=== PATIENT | female | born 1990 | race Caucasian/White ===

== ENCOUNTER → 2017-01-15 | Day surgery (SDC) | payer BC ==
[~2017-01-15] VITALS: Ht 162.6 cm; Wt 50.0 kg
[~2017-01-15] MED LIST: DESO1TAB PO
[2017-01-15 12:45] VITALS: BP 118/66; PULSE 66; TEMP 36.6; O2SAT 99; Ht 162.6 cm; Wt 50.0 kg
--- NOTE | 2017-01-15 15:13 | TILT TABLE TEST RESULTS ---
INDICATIONS FOR TILT TESTING: Recurrent syncope. HISTORY OF PRESENT ILLNESS: This is a 26-year-old woman who has been having recurrent episodes of syncope. They occur while she is standing up and while she is sitting down. She is currently undergoing evaluation including an event monitor which she is currently wearing but has had no episodes of syncope while wearing it. After obtaining informed consent for the procedure, she was placed on the tilt test where she remained supine for 15 minutes. After 15 minutes of equilibration the head of the bed was tilted upright to a 70 degree upright tilt where she remained for 40 minutes. At the end of 40 minutes, the bed was placed supine. During the tilt test, continuous electrocardiographic monitoring and pulse oximetry were performed and noninvasive blood pressure monitoring was performed. During the test, she had no symptoms. FINDINGS: Her blood pressure after the 15 minute equilibration period prior to upright tilt was 121/77, heart rate was 67, and oxygen saturation was 100%. Immediately on attaining an upright tilt, her blood pressure was 143/84, heart rate 84, and oxygenation unchanged at 100%. During the minutes of upright tilt, her heart rate fluctuated significantly, sometimes between 60 and 115 beats per minute, and in general gradually martha during the test. By the end of the test at 40 minutes her heart rate was averaging around 102. Her blood pressure also fluctuated somewhat with no clear pattern. Her minimum blood pressure occurred after 1 minute was 119/88, the maximum blood pressure occurred at 5 minutes and was 146/85. After 40 minutes, her blood pressure was 129/92. Oxygen saturation remained between 97 and 100% throughout. Immediately on being placed supine at the end of the test, her blood pressure was 132/78 (unchanged) and her heart rate was 102 (also unchanged). She was observed briefly and discharged. IMPRESSION: No evidence of vasovagal hypotension, and she was asymptomatic. She did, however, have a fluctuating heart rate, but this was asymptomatic. Her heart rate did gradually increased throughout the test suggestive of orthostasis; however, when placed supine heart rate did not drop. This would be inconsistent with orthostasis. The test therefore was a little bit unusual, but not clearly abnormal for either orthostasis or for vasovagal episode.
== END | disposition home or self-care (01) ==
LOC: C.CATH 12:17
PROVIDERS: ATTEND Internal Medicine Cardiovascular Disease
DX: R55 Syncope and collapse (principal)

== ENCOUNTER → 2017-03-08 | Outpatient (CLI) | payer BC ==
[2017-03-11 23:56] LABS: CHLAMYDIA TRACH RNA*** NOT DETECTED (NOT DETECTED); GC (NEIS GONORRHOEAE)RNA** NOT DETECTED (NOT DETECTED)
== END | disposition home or self-care (01) ==
LOC: C.LABSPEC 17:42
PROVIDERS: ATTEND Obstetrics & Gynecology
DX: Z11.3 Encounter for screening for infections with a predominantly sexual mode of transmission (principal)

== ENCOUNTER → 2017-03-08 | Outpatient (CLI) | payer BC | END | disposition home or self-care (01) | LOC: C.PAPS 10:23 | PROVIDERS: ATTEND Obstetrics & Gynecology | DX: Z01.419 Encounter for gynecological examination (general) (routine) without abnormal findings (principal) ==

== ENCOUNTER 2017-03-21 07:18 | Day surgery (SDC) | payer BC ==
[~2017-03-21] VITALS: Ht 162.6 cm; Wt 52.0 kg
[2017-03-21] VITALS (8 sets, daily range): BP systolic 106–139; BP diastolic 61–80; PULSE 61–80; TEMP 36.7–37.4; O2SAT 98–100; Ht 162.6 cm; Wt 52.0 kg
[~2017-03-21 07:18] MED LIST changes: +CEFAZOLIN 1000MG/55 ML D5W 55 ML IV SCH; +LACTATED RINGER'S 1000ML IV SCH; +PATIENT'S ALLERGY INFO NEEDS ENTERED SCH; +PATIENT'S HEIGHT AND/OR WEIGHT NEEDED SCH
[2017-03-21] MEDS ORDERED: LIDOCAINE HCL 1% 20 ML VIAL ONE (09:45)
[2017-03-21] MEDS ORDERED: BACITRACIN OINT 0.9 GM PKT ONE (09:45)
--- NOTE | 2017-03-21 10:05 | History & Physical Bridge Note ---
H&P Re-Evaluation Bridge Note: I have examined the patient, reviewed the History & Physical and in the interval since the performance of the History & Physical I have noted the following changes of clinical significance: No changes noted. I reviewed the indications, procedure, risks and alternatives with her and she understands and agrees to proceed. Consent obtained.
--- NOTE | 2017-03-21 10:06 | Procedure Note ---
Pre-Mod Sedation Assessment General Date of Moderate Sedation: March 21, 2017. Vital Signs: Vital Signs Past 12 Hours Date Time Temp Pulse Resp B/P Pulse Ox O2 Delivery O2 Flow Rate FiO2 03/21/17 10:01 36.8 80 16 139/80 99 Room Air 03/21/17 09:57 36.8 80 16 139/80 99 Room Air Review Cardiovascular: regular rate, rhythm Abdomen: normal bowel sounds Lungs: lungs clear Pre-Sedation Airway Assessment Smoking Status: Never Smoker Procedure Planning Contraindications-for Mod Sed: None Yes Notes The planned sedation has been discussed with the patient and consent obtained. I have identified the patient, determined the appropriateness of sedation and have assessed the patient immediately prior to the procedure. All medicine(s) and interventions are by my order.
[2017-03-21] MEDS ORDERED: MIDAZOLAM HCL 1 MG/ML 2ML VIAL ONE (10:14)
[2017-03-21] MEDS ORDERED: FENTANYL CITRATE INJ 50 MCG/1 ML 2 ML VIAL ONE (10:14)
--- NOTE | 2017-03-21 10:51 | Procedure Note ---
Post-Mod Sedation Assessment General Date of Moderate Sedation March 21, 2017. Vital Signs: Vital Signs Past 12 Hours Date Time Temp Pulse Resp B/P Pulse Ox O2 Delivery O2 Flow Rate FiO2 03/21/17 10:01 36.8 80 16 139/80 99 Room Air 03/21/17 09:57 36.8 80 16 139/80 99 Room Air Review - Discharge Criteria Vital Signs Stable: Yes Alert/Oriented/Conversant: Yes Returned to Baseline Mental St: Yes Nausea Absent/Minimal: Yes Pain/Discomfort/Absent/Minimal: Yes Normal/Baseline Respirations: Yes Active Bleeding?: No
--- NOTE | 2017-03-21 10:53 | Cardiology Procedure Brief Nt ---
Preliminary Cardiology Note Procedure Date March 21, 2017. Pre-Procedure Diagnosis syncope Post-Procedure Diagnosis same Procedure(s) Performed Loop recorder implantation Machine Heel Seat Fitter Dr. Martin Filling Layer Up(s) none Estimated Blood Loss 2 cc Preliminary Findings Good recorder placement Recommendations Monitor briefly and discharge Specimens None Anesthesia local with sedation Complication(s) None Disposition MTU
[2017-03-21] MEDS ORDERED: OXYCODONE/ACETAMINOPHEN 5-325 TAB PO PRN (11:00)
[2017-03-21] MEDS ORDERED: ACETAMINOPHEN 325 MG TAB PO PRN (11:00)
--- NOTE | 2017-03-21 11:39 | Discharge Instructions ---
Discharge Instructions Date of Service March 21, 2017. Admission Reason for Admission: Syncope Discharge Discharge Diagnosis / Problem: Loop recorder implantation Discharge Goals Goal(s): Diagnostic testing Activity Recommendations Activity Limitations: resume your previous activity . Instructions / Follow-Up Instructions / Follow-Up ACTIVITY RECOMMENDATIONS: * Do not raise affected arm over head for 2 weeks. SPECIAL CARE INSTRUCTIONS: * If bleeding occurs, apply direct pressure to area for 5 minutes. * Call your doctor if you have severe pain, fever, drainage or bleeding at site. * Keep dressing on and dry. * Keep any scheduled doctor's appointment. * Implant Card - hand held device with website information given. FOLLOW UP VISIT: Dr. Martin 03/22/2017, 10:30 AM Current Hospital Diet Patient's current hospital diet: Regular Diet Discharge Diet Recommended Diet: Regular Diet Pending Studies Studies pending at discharge: no Medical Emergencies . Who to Call and When: Medical Emergencies: If at any time you feel your situation is an emergency, please call 911 immediately. . Non-Emergent Contact Non-Emergency issues call your: Primary Care Provider . . "Provider Documentation" section prepared by Pete Martin. . VTE Core Measure Inpt VTE Proph given/why not?: Treatment not indicated
--- NOTE | 2017-04-15 21:49 | OPERATIVE REPORT ---
DATE OF OPERATION: 03/21/2017 PREOPERATIVE DIAGNOSIS: Syncope. POSTOPERATIVE DIAGNOSIS: Same. PROCEDURE: Loop recorder implantation. SURGEON: Pete Martin MD ANESTHESIA: Local with sedation. HISTORY: This is a 26-year-old woman who has a history of presyncope and syncope, attempts have been made to record the episodes and she had a tilt test. A clear etiology for syncope has not been identified. She is therefore brought to the laboratory for loop recorder implantation. DESCRIPTION OF PROCEDURE: After obtaining informed consent for the procedure, she was brought to the laboratory on the morning of 03/21/2017 being n.p.o. after midnight. She was identified in the laboratory, prepped and draped in standard sterile manner for a left-sided loop recorder implantation. The area 1 cm lateral to the left sternal border at around the fourth intercostal space was anesthetized with 1% lidocaine local anesthetic. Once adequate anesthesia was obtained, a 5 mm incision was made with a scalpel, and using the loop recorder insertion tool, a [employer] LINQ loop recorder was implanted subcutaneously at an approximately 45 degree angle inferiorly and leftwardly directed. The incision was then closed with a subcutaneous closure of 4-0 Vicryl followed by running subcuticular skin closure of 4-0 Vicryl. Steri-Strips were applied. Bacitracin ointment was applied to the incision and a pressure dressing applied. The patient tolerated the procedure well, there were no complications and estimated blood loss was 2 mL. The patient was transferred to the ambulatory unit for monitoring and subsequent discharge. The loop recorder is a [employer] Reveal LINQ, model LNQ11, serial number #[id number]. The recorder was reprogrammed in the laboratory to final settings. SHIRA
== END 2017-03-21 13:10 | disposition home or self-care (01) ==
LOC: C.ACU 07:18
PROVIDERS: ATTEND Internal Medicine Cardiovascular Disease
DX: R55 Syncope and collapse (principal); R53.83 Other fatigue; R01.1 Cardiac murmur, unspecified; R00.2 Palpitations; Z81.8 Family history of other mental and behavioral disorders; Z83.2 Family history of diseases of the blood and blood-forming organs and certain disorders involving the immune mechanism; Z83.3 Family history of diabetes mellitus; Z82.49 Family history of ischemic heart disease and other diseases of the circulatory system

== ENCOUNTER 2020-03-07 12:06 | Inpatient (IN) ==
[2020-03-07] MEDS ORDERED: OXYTOCIN 30 UNITS/500 ML BAG IV PRN ×2 (12:40→20:20)
--- NOTE | 2020-03-07 12:45 | History & Physical Report ---
Date of Service March 07, 2020 Assessment & Plan (1) Supervision of normal first : - heart rate tracing is category 2 with variability and good accelerations -Cervical change documented on physical examination and there was spontaneous rupture of membranes with clear fluid -The patient desires an epidural, anesthesia will be notified -All questions answered of the patient -Anticipate vaginal delivery History of Present Illness Chief Complaint: labor check Primary Care Provider: NO PCP The patient is a 29-year-old 1 para 0 with an EDC of 02 March, by first trimester ultrasound, who was admitted at 40+ weeks gestational age in active labor. The patient has been having prodromal contractions for the last 48 hours. She had 2 labor evaluations in the previous 36 hours and was discharged home with no cervical change. Patient states that the contractions have continued to increase in intensity. She denies leaking of fluid or vaginal bleeding. The patient has had a benign course. The patient was evaluated by cardiology for some syncopal episodes. She had a pvc monitor which showed SVT. Patient has been doing well during out the . Laboratory values for the show blood type of O+, antibody negative, rubella immune, hepatitis B negative, she had negative cell free DNA screening, negative cystic fibrosis and SMA screen, she declined MSAFP, she had a normal 1 hour Glucola x2, and a negative third trimester beta strep culture. Allergies Allergy/AdvReac Type Severity Reaction Status Date / Time No Known Allergies Allergy Verified 03/03/20 11:14 Home Medications Home Medications Medication Instructions Recorded Confirmed Type prenat.vits,braydon,[id number] 1 tab PO DAILY 07/15/19 03/05/20 History Patient History Medical History (Updated 03/07/20 @ 12:40 by Nathen Prado Jr, MD, FACOG) Fainting No pertinent past medical history Uterine contractions at greater than 20 weeks of gestation Surgical History S/P wisdom tooth extraction Status post placement of implantable loop recorder Social History Preferred Language: Bulgarian Communication Ability: Effective Beliefs That Will Affect Care: None marital status: marital status details: Sly Yaneth (29) [phone] Current Living Situation: Spouse Current Living Situation Comment: Sly current occupational status: employed 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[employer] Other Information That Helps Us Care for You: No Feels Safe at Home: Yes Safety Concerns: Feels Safe At This Time Smoking Status: Never smoker Hx Alcohol Use: No Hx Substance Use: No Physical Exam Constitutional: WD/WN, vitals as above Respiratory: Auscultation: lungs clear to auscultation bilaterally Cardiovascular: RRR, no murmur, no edema Extremities: no calf tenderness Gastrointestinal (Abdomen): Gravid, vtx, (+) FHT's efw 7 1/2 lbs Genitourinary: Cervix: 5/90/-1, SROM with exam Results & Data Vital Signs (Past 12 Hours) Vital Signs Temp Pulse Resp BP 03/07/20 12:23 98.2 F 20 03/07/20 12:18 102 H 116/76 Coding Level of Care Code None Diagnoses Supervision of normal first Z34.00
[2020-03-07] MEDS ORDERED: ePHEDrine sulfate 50 MG/ML AMP ONE (12:58)
[2020-03-07] MEDS ORDERED: fentaNYL citrate 100 MCG/2 ML VIAL ONE (12:58)
[2020-03-07] MEDS ORDERED: BUPIVACAINE 0.25% 30 ML VIAL ONE (12:58)
[2020-03-07] MEDS ORDERED: fentaNYL 2MCG/ML ROPIV 1.25MG/ML 100 ML BAG EPI ONE (12:59)
[2020-03-07] MEDS: LACTATED RINGER'S 1,000 ML IV PRN ×3 (13:00→17:42)
[2020-03-07 13:10] LABS: Hematocrit (blood only) 36.2 % (37-47); Hemoglobin 12.5 g/dL (12.0-16.0); Mean Corpuscular Hemoglobin 30.7 pg (25-34); Mean Corpuscular Volume 88.9 fL (80-100); Mean Platelet Volume 8.6 fL (7.4-10.4); Platelet Count 277 K/uL (130-400); RDW Coefficient of Variation 13.3 % (11.5-14.5); RDW Standard Deviation 43.4 fL (36.4-46.3); Red Blood Count 4.07 M/uL (4.2-5.4); White Blood Count 18.86 K/uL (4.8-10.8)
[2020-03-07 13:33] LABS: Mean Corpuscular Hgb Conc 34.5 g/dL (32-36)
[2020-03-07] MEDS ORDERED: ePHEDrine sulfate 50 MG/ML AMP IV PRN (14:00)
[2020-03-07] MEDS ORDERED: NALOXONE HCL 1 MG in SODIUM CHLORIDE 0.9% 1000ML 1,000 ML IV PRN (14:00)
[2020-03-07] MEDS ORDERED: ONDANSETRON INJ 2 MG/ML 2 ML VIAL IV PRN (14:00)
[2020-03-07] MEDS ORDERED: fentaNYL 2MCG/ML ROPIV 1.25MG/ML 100 ML BAG EPI PRN (14:00)
[2020-03-07] MEDS ORDERED: NALBUPHINE HCL INJ 10 MG/ML AMP IV PRN (14:00)
[2020-03-07] MEDS ORDERED: DiphenhydrAMINE HCL 50 MG/ML VIAL IV PRN (14:00)
[2020-03-07] MEDS ORDERED: NALOXONE HCL 0.4 MG/1 ML VIAL/CARP IV PRN (14:00)
--- NOTE | 2020-03-07 14:00 | Anesthesiology Consultation ---
Date of Service March 07, 2020 Assessment & Plan (1) Encounter for pre-operative examination: Chart Review Chart Review: Patient NOT seen in Pre Admission Testing and Acceptable Risk for Labor Epidural Consults Requested none ASA ASA2 Proposed Anesthesia Anesthesia Type: Labor Epidural Risk / Benefits Reviewed With: PT / POA / Parent / Guardian, Accepts Plan and Informed Consent Obtained History Height/Weight Height: 5 ft 4 in Weight: 64.864 kg Allergies Allergy/AdvReac Type Severity Reaction Status Date / Time No Known Allergies Allergy Verified 03/03/20 11:14 Medications Home Medications Medication Instructions Recorded Confirmed Last Taken prenat.vits,braydon,vky-rvno-rqssz 1 tab PO DAILY 07/15/19 03/07/20 03/05/20 08:00 Active Medications Generic Name Dose Route Start Last Admin Trade Name Freq PRN Reason Stop Dose Admin Lactated Ringer's 1,000 mls @ 125 mls/hr 03/07/20 12:40 03/07/20 13:44 Lr IV 03/09/20 12:39 999 mls/hr .Q8H PRN Administration L&D Protocol Protocol NPO Date Last Intake of Fluids: 03/07/20 Time Last Intake of Fluids: 11:00 Date Last Intake of Solids: 03/07/20 Time Last Intake of Solids: 08:00 Past Medical History Medical History Fainting No pertinent past medical history Uterine contractions at greater than 20 weeks of gestation Exercise / Class Metabolic Activity II 4-5 Yardwork/Stairs/Walk up hill Past Family History Family History Mother Anemia Grandmother (Maternal) Thyroid disease Past Surgical History Surgical History S/P wisdom tooth extraction Status post placement of implantable loop recorder Past Anesthesia History No Hx of Anesthesia Complications and No Family Hx of Anesthesia Complications History of PONV No Hx of PONV and No Hx of Motion Sickness Social History Smoking Status: Never smoker Hx Alcohol Use: No Hx Substance Use: No Physical Exam Vital Signs Last Vital Signs Temp 36.8 C 03/07/20 12:23 Pulse 84 03/07/20 13:57 Resp 20 03/07/20 12:23 BP 127/69 04/27/20 13:57 Pulse Ox 91 03/07/20 13:56 ENMT Mouth: no dentition abnormality Thyromental Distance: > or= 3.5 Finger Breadths Mallampati Class: II Neck normal visual inspection Respiratory normal respiratory effort Auscultation: lungs clear to auscultation bilaterally Cardiovascular Rate/Rhythm: regular rate and regular rhythm Psychiatric Orientation: alert Testing Laboratory Results 03/07/20 13:01
--- NOTE | 2020-03-07 18:11 | Labor Progress Brief Note ---
Date of Service March 07, 2020 Subjective pain with ctx's Assessment & Plan (1) Supervision of normal first : - tracing Cat II, decels with ctx's but accelerations and variability - head low (+)1-(+)2 with ctx - anterior lip reduced - continue 2nd stage Physical Exam Genitourinary: Cervix: thick anterior lip reduced, pushing effectively Results & Data Vital Signs (Past 12 Hours) Vital Signs Temp Pulse Resp BP Pulse Ox 03/07/20 18:04 155 H 180/95 H 03/07/20 18:03 123 H 98 03/07/20 18:02 120 H 90 03/07/20 17:58 131 H 98 03/07/20 17:54 129 H 139/91 03/07/20 17:53 121 H 99 03/07/20 17:49 109 H 150/88 H 03/07/20 17:48 109 H 98 03/07/20 17:43 111 H 153/98 H 99 03/07/20 17:39 96 H 144/86 H 03/07/20 17:38 100 H 99 03/07/20 17:34 96 H 154/96 H 03/07/20 17:33 101 H 100 03/07/20 17:31 20 03/07/20 17:28 90 143/82 H 98 03/07/20 17:24 92 H 130/81 03/07/20 17:23 89 99 03/07/20 17:19 88 138/84 03/07/20 17:18 100 H 97 03/07/20 17:14 102 H 139/80 03/07/20 17:13 95 H 99 03/07/20 17:10 88 151/83 H 03/07/20 17:08 96 H 99 03/07/20 17:03 106 H 141/83 H 100 03/07/20 17:01 98.6 F 20 03/07/20 17:00 85 140/82 03/07/20 16:58 84 100 03/07/20 16:54 90 137/80 03/07/20 16:53 88 99 03/07/20 16:50 79 141/84 H 03/07/20 16:48 83 99 03/07/20 16:45 82 133/79 03/07/20 16:43 82 99 03/07/20 16:39 88 133/87 03/07/20 16:38 88 99 03/07/20 16:33 93 H 114/56 L 99 03/07/20 16:31 20 03/07/20 16:29 90 113/56 L 03/07/20 16:28 93 H 99 03/07/20 16:25 84 124/59 L 03/07/20 16:23 86 99 03/07/20 16:19 75 113/62 03/07/20 16:18 77 98 03/07/20 16:14 87 121/68 03/07/20 16:13 86 98 03/07/20 16:09 77 112/58 L 03/07/20 16:08 80 99 03/07/20 16:04 77 129/66 03/07/20 16:03 76 98 03/07/20 16:01 20 03/07/20 15:59 78 122/71 03/07/20 15:58 80 97 03/07/20 15:54 92 H 130/81 03/07/20 15:53 76 98 03/07/20 15:49 90 121/71 03/07/20 15:48 86 97 03/07/20 15:44 81 121/76 03/07/20 15:43 73 97 03/07/20 15:40 80 126/73 03/07/20 15:38 112 H 97 03/07/20 15:34 86 118/80 03/07/20 15:33 84 98 03/07/20 15:31 20 03/07/20 15:28 77 126/77 97 03/07/20 15:24 93 H 121/78 03/07/20 15:23 80 99 03/07/20 15:19 80 120/71 03/07/20 15:18 76 98 03/07/20 15:14 81 121/76 03/07/20 15:13 80 99 03/07/20 15:08 78 122/80 98 03/07/20 15:05 79 120/76 03/07/20 15:03 76 98 03/07/20 15:01 98.6 F 20 03/07/20 14:58 92 H 116/72 97 03/07/20 14:54 85 118/76 03/07/20 14:53 82 98 03/07/20 14:49 114 H 119/79 03/07/20 14:48 112 H 98 03/07/20 14:44 86 127/76 03/07/20 14:43 75 98 03/07/20 14:39 77 134/78 03/07/20 14:38 92 H 100 03/07/20 14:34 75 128/78 03/07/20 14:33 72 99 03/07/20 14:31 20 03/07/20 14:30 72 123/72 03/07/20 14:28 135 H 98 03/07/20 14:24 101 H 125/77 03/07/20 14:23 84 99 03/07/20 14:18 108 H 120/69 99 03/07/20 14:14 85 122/59 L 03/07/20 14:13 88 99 03/07/20 14:10 78 115/81 03/07/20 14:08 78 99 03/07/20 14:04 83 128/69 03/07/20 14:03 79 97 03/07/20 14:01 20 03/07/20 13:58 85 98 03/07/20 13:57 84 127/69 03/07/20 13:56 95 H 91 03/07/20 13:55 77 129/64 03/07/20 13:53 99 H 141/75 H 99 03/07/20 13:49 108 H 89 L 03/07/20 13:48 82 98 03/07/20 13:43 105 H 97 03/07/20 13:42 86 146/67 H 03/07/20 13:41 107 H 93 03/07/20 13:38 76 99 03/07/20 13:33 86 97 03/07/20 13:28 75 99 03/07/20 13:23 101 H 99 03/07/20 13:18 78 99 03/07/20 13:13 77 98 03/07/20 12:23 98.2 F 20 03/07/20 12:18 102 H 116/76 Coding Level of Care Code None Diagnoses Supervision of normal first Z34.00
[2020-03-07] MEDS ORDERED: Nursing to Pharmacy Communication ONE (19:13)
--- NOTE | 2020-03-07 19:27 | Labor Progress Brief Note ---
Date of Service March 07, 2020 Assessment & Plan (1) Supervision of normal first : - tracing CAt II - continue 2nd stage Physical Exam Genitourinary: Cervix: complete/ caput at introitus with push Results & Data Vital Signs (Past 12 Hours) Vital Signs Temp Pulse Resp BP Pulse Ox 03/07/20 19:23 135 H 98 03/07/20 19:19 115 H 148/78 H 03/07/20 19:18 138 H 97 03/07/20 19:15 22 03/07/20 19:13 126 H 133/83 97 03/07/20 19:10 137 H 134/78 03/07/20 19:09 115 H 89 L 03/07/20 19:08 113 H 96 03/07/20 19:04 141 H 134/84 03/07/20 19:03 144 H 99 03/07/20 19:00 98.8 F 22 03/07/20 18:58 136 H 127/74 97 03/07/20 18:56 143 H 90 03/07/20 18:54 127 H 133/77 03/07/20 18:53 141 H 97 03/07/20 18:51 123 H 91 03/07/20 18:48 106 H 95 03/07/20 18:43 155 H 98 03/07/20 18:39 110 H 132/64 03/07/20 18:38 110 H 96 03/07/20 18:34 109 H 138/80 03/07/20 18:33 109 H 97 03/07/20 18:31 20 03/07/20 18:29 126 H 122/67 03/07/20 18:28 131 H 96 03/07/20 18:26 136 H 94 03/07/20 18:25 144 H 138/77 03/07/20 18:23 154 H 97 03/07/20 18:21 130 H 90 03/07/20 18:19 155 H 124/84 03/07/20 18:18 132 H 97 03/07/20 18:15 131 H 91 03/07/20 18:13 99.9 F H 156 H 20 97 03/07/20 18:09 127 H 125/81 03/07/20 18:08 134 H 97 03/07/20 18:04 155 H 180/95 H 03/07/20 18:03 123 H 98 03/07/20 18:02 120 H 90 03/07/20 17:58 131 H 98 03/07/20 17:54 129 H 139/91 03/07/20 17:53 121 H 99 03/07/20 17:49 109 H 150/88 H 03/07/20 17:48 109 H 98 03/07/20 17:43 111 H 153/98 H 99 03/07/20 17:39 96 H 144/86 H 03/07/20 17:38 100 H 99 03/07/20 17:34 96 H 154/96 H 03/07/20 17:33 101 H 100 03/07/20 17:31 20 03/07/20 17:28 90 143/82 H 98 03/07/20 17:24 92 H 130/81 03/07/20 17:23 89 99 03/07/20 17:19 88 138/84 03/07/20 17:18 100 H 97 03/07/20 17:14 102 H 139/80 03/07/20 17:13 95 H 99 03/07/20 17:10 88 151/83 H 03/07/20 17:08 96 H 99 03/07/20 17:03 106 H 141/83 H 100 03/07/20 17:01 98.6 F 20 03/07/20 17:00 85 140/82 03/07/20 16:58 84 100 03/07/20 16:54 90 137/80 03/07/20 16:53 88 99 03/07/20 16:50 79 141/84 H 03/07/20 16:48 83 99 03/07/20 16:45 82 133/79 03/07/20 16:43 82 99 03/07/20 16:39 88 133/87 03/07/20 16:38 88 99 03/07/20 16:33 93 H 114/56 L 99 03/07/20 16:31 20 03/07/20 16:29 90 113/56 L 03/07/20 16:28 93 H 99 03/07/20 16:25 84 124/59 L 03/07/20 16:23 86 99 03/07/20 16:19 75 113/62 03/07/20 16:18 77 98 03/07/20 16:14 87 121/68 03/07/20 16:13 86 98 03/07/20 16:09 77 112/58 L 03/07/20 16:08 80 99 03/07/20 16:04 77 129/66 03/07/20 16:03 76 98 03/07/20 16:01 20 03/07/20 15:59 78 122/71 03/07/20 15:58 80 97 03/07/20 15:54 92 H 130/81 03/07/20 15:53 76 98 03/07/20 15:49 90 121/71 03/07/20 15:48 86 97 03/07/20 15:44 81 121/76 03/07/20 15:43 73 97 03/07/20 15:40 80 126/73 03/07/20 15:38 112 H 97 03/07/20 15:34 86 118/80 03/07/20 15:33 84 98 03/07/20 15:31 20 03/07/20 15:28 77 126/77 97 03/07/20 15:24 93 H 121/78 03/07/20 15:23 80 99 03/07/20 15:19 80 120/71 03/07/20 15:18 76 98 03/07/20 15:14 81 121/76 03/07/20 15:13 80 99 03/07/20 15:08 78 122/80 98 03/07/20 15:05 79 120/76 03/07/20 15:03 76 98 03/07/20 15:01 98.6 F 20 03/07/20 14:58 92 H 116/72 97 03/07/20 14:54 85 118/76 03/07/20 14:53 82 98 03/07/20 14:49 114 H 119/79 03/07/20 14:48 112 H 98 03/07/20 14:44 86 127/76 03/07/20 14:43 75 98 03/07/20 14:39 77 134/78 03/07/20 14:38 92 H 100 03/07/20 14:34 75 128/78 03/07/20 14:33 72 99 03/07/20 14:31 20 03/07/20 14:30 72 123/72 03/07/20 14:28 135 H 98 03/07/20 14:24 101 H 125/77 03/07/20 14:23 84 99 03/07/20 14:18 108 H 120/69 99 03/07/20 14:14 85 122/59 L 03/07/20 14:13 88 99 03/07/20 14:10 78 115/81 03/07/20 14:08 78 99 03/07/20 14:04 83 128/69 03/07/20 14:03 79 97 03/07/20 14:01 20 03/07/20 13:58 85 98 03/07/20 13:57 84 127/69 03/07/20 13:56 95 H 91 03/07/20 13:55 77 129/64 03/07/20 13:53 99 H 141/75 H 99 03/07/20 13:49 108 H 89 L 03/07/20 13:48 82 98 03/07/20 13:43 105 H 97 03/07/20 13:42 86 146/67 H 03/07/20 13:41 107 H 93 03/07/20 13:38 76 99 03/07/20 13:33 86 97 03/07/20 13:28 75 99 03/07/20 13:23 101 H 99 03/07/20 13:18 78 99 03/07/20 13:13 77 98 03/07/20 12:23 98.2 F 20 03/07/20 12:18 102 H 116/76 Coding Level of Care Code None Diagnoses Supervision of normal first Z34.00
[2020-03-07] MEDS ORDERED: HYDROCORTISONE ACETATE 25 MG SUPP PR PRN (20:20)
[2020-03-07] MEDS ORDERED: ACETAMINOPHEN W/CODEINE #3 1 TAB PO PRN (20:20)
[2020-03-07] MEDS ORDERED: DIPHTHERIA/TETANUS/PERTUSSIS 0.5 ML SYR/VIAL IM ONE (20:20)
[2020-03-07] MEDS ORDERED: SUPERCREAM 0.870% 15 GM JAR EXT PRN (20:20)
[2020-03-07] MEDS ORDERED: BENZOCAINE 20% AER SPR 82.5 GM CAN EXT PRN (20:20)
[2020-03-07] MEDS ORDERED: ACETAMINOPHEN 325 MG TAB PO PRN (20:20)
--- NOTE | 2020-03-07 20:24 | Delivery Summary ---
Vaginal Delivery Summary Date of Service March 07, 2020 Vaginal Delivery Summary Findings: Viable male infant with Apgars of 8 and 9, baby delivered over midline episiotomy, shoulder cord noted, thick meconium with delivery, cord clamped and cut and baby taken to resuscitation stand, cord gases and cord blood samples obtained, placenta delivered spontaneously and noted to be meconium stained, sent for pathological evaluation, episiotomy repaired with 4-0 and 2-0 Vicryl in a routine fashion. Estimated blood loss 300 cc Labor note: The patient is a 29-year-old 1 para 0 with an EDC of 02 March, by first trimester ultrasound, who was admitted at 40+ weeks gestational age in active labor. The patient has been having prodromal contractions for the last 48 hours. She had 2 labor evaluations in the previous 36 hours and was discharged home with no cervical change. Patient states that the contractions have continued to increase in intensity. She denies leaking of fluid or vaginal bleeding. The patient has had a benign course. The patient was evaluated by cardiology for some syncopal episodes. She had a cardiac/vascular sonographer which showed SVT. Patient has been doing well during out the . Laboratory values for the show blood type of O+, antibody negative, rubella immune, hepatitis B negative, she had negative cell free DNA screening, negative cystic fibrosis and SMA screen, she declined MSAFP, she had a normal 1 hour Glucola x2, and a negative third trimester beta strep culture. Upon admission the patient was 5 cm dilated 90% effaced and 0 station. Tracing was category 2 with variability and accelerations. Patient was uncomfortable anesthesia was consulted and an epidural was placed. Over the next 5 hours the patient progressed to a thick anterior lip. Patient was very uncomfortable at this point feeling pressure with contractions. Manual reduction of the anterior lip allowed initiation of her second stage. Lip would return intermittently and required manual reduction. Patient pushed for approximately 2 hours delivering the viable male infant over a midline episiotomy. Shoulder cord was noted with delivery along with thick meconium. Baby taken to the resuscitation stand after delivery. Cord gases and cord blood samples were obtained. Meconium stained placenta was delivered and sent for pathological evaluation. Cervix was inspected and no lacerations were noted. Midline episiotomy was repaired with 4-0 and 2-0 Vicryl in a routine fashion. Postdelivery catheterization for 100 cc of urine. Sponge and needle count was correct. Estimated blood loss 300 cc.
[2020-03-07 20:34] LABS: Base Excess Cord Arterial Bld -1.3 mEq/L (-9-1.8); CO2 Cord Arterial Blood 47 mmHg (39.1-73.5); HCO3 Cord Arterial Blood 25 mmol/L (19.7-28.5); PO2 Cord Arterial Blood 19 mmHg (4.1-31.7); pH Cord Arterial Blood 7.34 (7.1-7.38)
[2020-03-07 20:42] LABS: Base Excess Cord Venous Blood -1.2 mEq/L (-7.7-1.9); Cord Venous Blood HCO3 21 mmol/L (18.4-26.8); Cord Venous Blood PCO2 31 mmHg (30.4-57.2); Cord Venous Blood PO2 24 mmHg (14.1-43.3)
[2020-03-07 20:48] LABS: Oxygen Sat Cord Arterial Blood < 60.0 % (<60)
[2020-03-07 20:49] LABS: Cord Venous Blood pH 7.46 (7.20-7.44)
[2020-03-07] MEDS: IBUPROFEN 600 MG TAB PO PRN (22:14)
[2020-03-07] MEDS: DOCUSATE SODIUM 100 MG CAP PO SCH (22:16)
[2020-03-08] MEDS: IBUPROFEN 600 MG TAB PO PRN ×4 (04:30→20:16)
--- NOTE | 2020-03-08 07:41 | Obstetrical Progress Note ---
Date of Service March 08, 2020 Assessment & Plan (1) Supervision of normal first : - routine care - doing well Subjective Ambulation: ambulating normally Feeding Type:: breast feeding Physical Exam Constitutional WD/WN, vitals as above Gastrointestinal (Abdomen) Fundus firm below umbilicus Musculoskeletal No deep calf tenderness Results & Data Vital Signs (Past 12 Hours) Vital Signs Temp Pulse Pulse Resp BP BP Pulse Ox 03/08/20 04:20 98.4 F 81 18 105/63 98 03/07/20 23:00 98.4 F 79 18 116/71 97 03/07/20 22:12 98.4 F 20 03/07/20 22:07 87 131/58 L 03/07/20 21:52 89 134/63 03/07/20 21:37 85 152/80 H 03/07/20 21:22 81 18 138/74 03/07/20 21:07 85 143/75 H 03/07/20 20:52 84 18 130/69 03/07/20 20:37 91 H 16 130/70 03/07/20 20:22 107 H 20 137/70 03/07/20 20:07 98.1 F 90 20 145/74 H 03/07/20 20:04 96 H 142/57 H 03/07/20 20:03 89 98 03/07/20 19:59 86 163/70 H 03/07/20 19:58 93 H 98 03/07/20 19:54 116 H 177/77 H 03/07/20 19:53 102 H 98 03/07/20 19:50 106 H 87 L 03/07/20 19:49 114 H 183/96 H 03/07/20 19:48 125 H 99 03/07/20 19:45 24 03/07/20 19:43 116 H 97
[2020-03-08] MEDS: PRENATAL VITAMIN 1 TAB PO SCH (08:31)
[2020-03-08] MEDS: DOCUSATE SODIUM 100 MG CAP PO SCH ×2 (08:31→20:17)
--- NOTE | 2020-03-08 09:45 | Anesthesia Procedure Note ---
Date of Service March 08, 2020 Anesthesia Post Epidural Note Vital Signs Vital Signs: Temp Pulse Resp BP Pulse Ox 98.4 F 81 18 105/63 98 03/08/20 04:20 03/08/20 04:20 03/08/20 04:20 03/08/20 04:20 03/08/20 04:20 Pain Intensity Abdomen: Pain Intensity: 2 Bilateral Perineal: Pain Intensity: 3 Notes Mental Status: alert / awake / arousable and participated in evaluation Nausea / Vomiting: adequately controlled Pain: adequately controlled Airway Patency, RR, SpO2: stable & adequate BP & HR: stable & adequate Hydration State: stable & adequate Neuraxial Anesthesia: was administered and sensory block is resolving Anesthetic Complications: no major complications apparent and Pt Satisfied with anesthetic care Epidural: Removed without complications and With tip intact
[2020-03-08] MEDS ORDERED: bisacodyL 5 MG TABEC PO SCH (20:00)
[2020-03-09] MEDS: IBUPROFEN 600 MG TAB PO PRN ×2 (03:43→09:14)
--- NOTE | 2020-03-09 06:04 | Obstetrical Progress Note ---
Date of Service March 09, 2020 Assessment & Plan (1) Status post vaginal delivery: Doing well. Would like d/c today. Instructions given. Subjective Ambulation: ambulating normally Voiding: no voiding problems Passing Gas:: No Diet Tolerance:: regular diet Lochia:: Small Feeding Type:: breast feeding Physical Exam Constitutional WD/WN, vitals as above Cardiovascular Extremities: no calf tenderness and no edema Gastrointestinal (Abdomen) soft, gravid, nt, ff/nt 1 below u Psychiatric A+Ox3, euthymic affect Results & Data Vital Signs (Past 12 Hours) Vital Signs Temp Pulse Resp BP Pulse Ox 03/08/20 23:00 36.9 C 84 16 110/71 97 03/08/20 19:55 36.9 C 80 16 114/70 97
[2020-03-09 06:06] LABS: Hematocrit (blood only) 32.8 % (37-47)
[2020-03-09] MEDS: DOCUSATE SODIUM 100 MG CAP PO SCH (09:13)
[2020-03-09] MEDS: PRENATAL VITAMIN 1 TAB PO SCH (09:14)
== END 2020-03-09 13:25 | disposition home or self-care (01) | DRG 807 ==
LOC: OPB 12:06 → 4S1 12:07 → 4S2 22:30

== ENCOUNTER 2024-08-13 07:53 | Inpatient (IN) ==
[2024-08-13] MEDS ORDERED: OXYTOCIN 30 UNITS/NSS 30 UNITS/500 ML BAG IV PRN (09:37)
[2024-08-13] MEDS ORDERED: LIDOCAINE 1% LOCAL 20 ML VIAL INFIL PRN (09:37)
--- NOTE | 2024-08-13 09:47 | History & Physical Report ---
Date of Service August 13, 2024 Assessment & Plan (1) Encounter for induction of labor: Present on Admission?: Yes Plan Admit to L and D Regular diet x 2 then NPO/IV Fluids labs Cervidil PV for cervical ripening Pitocin then AROM eventually to augment labor Pain meds including epidural as the pt desires Admission and Anticipated Discharge Date Admission Date: August 13, 2024 History of Present Illness Chief Complaint: induction of labor for postdates Primary Care Provider: NO PCP pt 34 yr old IUP at 40 weeks 6 days came in for Induction of labor for postdates. pt denies regular contractions, vaginal bleeding, leaking of fluid per vagina etc. reports good movement. Allergies Allergy/AdvReac Type Severity Reaction Status Date / Time No Known Allergies Allergy Verified 03/26/23 17:44 Home Medications Medication Instructions Recorded Confirmed Type vits no.124-ferrous fum 1 tab PO DAILY 08/13/24 08/13/24 History 27 mg iron-folic acid 800 mcg tablet ( Vitamin) Patient History Medical History Encounter for pre-operative examination Uterine contractions at greater than 20 weeks of gestation Fainting Supervision of normal first Surgical History Status post vaginal delivery S/P wisdom tooth extraction Family History Mother Anemia Grandmother (Maternal) Thyroid disease Social History Smoking Status: Never smoker Hx Alcohol Use: Yes Hx Substance Use: No Preferred Language: Turkish Communication Ability: Effective Playground Supervisor Required: No Beliefs That Will Affect Care: None marital status: marital status details: Sly Wolfe (29) [phone] Current Living Situation: Family Current Living Situation Comment: Sly current occupational status: employed 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 Feels Safe at Home: Yes Assistive Devices: Glasses Review of Systems All systems reviewed & are unremarkable except as noted in HPI & below as per Subjective / HPI as per Subjective / HPI as per Subjective / HPI as per Subjective / HPI as per Subjective / HPI Physical Exam Constitutional: WD/WN, vitals as above Respiratory: normal respiratory effort, lungs clear to auscultation Cardiovascular: RRR, no murmur, no edema Gastrointestinal (Abdomen): normal bowel sounds, soft, nontender, no hepatosplenomegaly Skin: no rashes, warm and dry Psychiatric: A+Ox3, euthymic affect Genitourinary: no vaginal lesions, no adnexal mass Speculum/Bimanual Exam: normal appearance of the vagina Manual OB Exam: + cervical dilation 1 cm, + cervical effacement 50% and + station high OB Exam Monitor Tracing: + external FHT monitor used and + category I Results & Data Vital Signs (Past 12 Hours) Vital Signs Pulse BP 08/13/24 08:06 90 128/79 Monitoring External Monitor 140s, Good variability, positive accelerations Tocodynamometer irregular uterine contractions Supervising Physician Co-Signing Physician Notes Juan Hensley MD
[2024-08-13] MEDS: DINOPROSTONE 10 MG INSERT PV ONE (10:10)
[2024-08-13 10:44] LABS: Hemoglobin 10.2 g/dl (12.0-16.0); Mean Corpuscular Hemoglobin 25.6 pg (25.0-34.0); Mean Corpuscular Hgb Conc 31.9 g/dL (32.0-36.0); Mean Corpuscular Volume 80.2 fL (80.0-100.0); Mean Platelet Volume 9.3 fL (9.4-12.4); Platelet Count 241 K/uL (130-400); RDW Standard Deviation 40.9 fL (36.4-46.3); Red Blood Count 3.99 M/uL (4.20-5.40); White Blood Count 10.14 K/ul (4.8-10.8)
[2024-08-14] MEDS: LACTATED RINGER'S 1,000 ML IV PRN (03:33)
[2024-08-14] MEDS ORDERED: NALOXONE HCL 0.4 MG/1 ML VIAL/CARP IV PRN ×2 (03:56→22:26)
[2024-08-14] MEDS ORDERED: LIDOCAINE 2% MPF LOCAL 5 ML VIAL EPI PRN (03:56)
[2024-08-14] MEDS ORDERED: NALBUPHINE HCL INJ 10 MG/ML AMP IV PRN ×2 (03:56→22:26)
[2024-08-14] MEDS ORDERED: BUPIVACAINE 0.25% PF 30 ML VIAL EPI PRN (03:56)
[2024-08-14] MEDS ORDERED: ePHEDrine sulfate 50 MG/ML AMP IV PRN ×2 (03:56→22:26)
[2024-08-14] MEDS ORDERED: SODIUM CHLORIDE 0.9% PF INJ 10 ML VIAL EPI PRN (03:56)
[2024-08-14] MEDS ORDERED: ROPIVACAINE 0.5% PF 5 MG/ML 20 ML VIAL EPI PRN (03:56)
[2024-08-14] MEDS ORDERED: diphenhydrAMINE 50 MG/ML VIAL IV PRN ×2 (03:56→22:26)
[2024-08-14] MEDS ORDERED: NALOXONE HCL 1 MG in SODIUM CHLORIDE 0.9% 1,000 ML IV PRN ×2 (03:56→22:26)
--- NOTE | 2024-08-14 03:56 | Anesthesiology Consultation ---
Date of Service August 14, 2024 Assessment & Plan Chart Review Chart Review: Acceptable Risk for Labor Epidural Consults Requested none History Height/Weight Height: 5 ft 3.5 in Weight: 69.672 kg Allergies Allergy/AdvReac Type Severity Reaction Status Date / Time No Known Allergies Allergy Verified 08/13/24 11:09 Medications Home Medications Medication Instructions Recorded Confirmed Last Taken vits no.124-ferrous fum 1 tab PO DAILY 08/13/24 08/13/24 08/12/24 27 mg iron-folic acid 800 mcg tablet ( Vitamin) Active Medications Generic Name Dose Route Start Last Admin Trade Name Freq PRN Reason Stop Dose Admin Lactated Ringer's 1,000 mls @ 125 mls/hr 08/13/24 09:37 08/14/24 03:33 Lr IV 08/15/24 09:36 999 mls/hr .Q8H PRN Administration L&D Protocol Protocol Past Medical History Medical History (Updated 08/13/24 @ 11:42 by Kacie Fletcher RN) SVT (supraventricular tachycardia) Encounter for pre-operative examination Uterine contractions at greater than 20 weeks of gestation Fainting Supervision of normal first Past Family History Family History (Updated 08/13/24 @ 11:41 by Kacie Fletcher RN) Mother Anemia Grandmother (Maternal) Thyroid disease Hypertension Diabetes Aunt No problems noted. Family/Other CMTC (cutis marmorata telangiectatica congenita) Craniosynostosis Past Surgical History Surgical History Status post vaginal delivery S/P wisdom tooth extraction Social History Smoking Status: Never smoker Hx Alcohol Use: No alcohol intake frequency: holidays/special occasions only Hx Substance Use: No substance use type: does not use Review of Systems Constitutional: as per Subjective / HPI Respiratory: as per Subjective / HPI Cardiovascular: as per Subjective / HPI Gastrointestinal: as per Subjective / HPI Genitourinary (Female): as per Subjective / HPI Physical Exam Vital Signs Last Vital Signs Temp 36.6 C 08/14/24 03:07 Pulse 82 08/14/24 03:07 Resp 16 08/14/24 03:07 BP 123/71 08/14/24 03:07 O2 Del Method Room Air 08/13/24 19:10 Constitutional WD/WN, vitals as above Respiratory normal respiratory effort, lungs clear to auscultation Cardiovascular RRR, no murmur, no edema Gastrointestinal (Abdomen) normal bowel sounds, soft, nontender, no hepatosplenomegaly Skin no rashes, warm and dry Psychiatric A+Ox3, euthymic affect Genitourinary no vaginal lesions, no adnexal mass Speculum/Bimanual Exam: normal appearance of the vagina Manual OB Exam: + cervical dilation + 1 cm, + cervical effacement + 50% and + station + high OB Exam Monitor Tracing: + external FHT monitor used and + category I Testing Laboratory Results 08/13/24 10:21
[2024-08-14] MEDS: fentANYL 2 MCG/ML BUPIVacaine 0.125%-NSS 100ML BAG ONE (04:16)
[2024-08-14] MEDS: LIDOCAINE 2%/EPINEPHRINE 1:200,000 20 ML PF ONE (04:20)
[2024-08-14] MEDS: ePHEDrine sulfate 50 MG/ML AMP ONE (04:55)
--- NOTE | 2024-08-14 05:46 | Obstetrical Progress Note ---
Date of Service August 14, 2024 Assessment & Plan (1) Encounter for induction of labor: Present on Admission?: Yes Plan Pitocin then AROM eventually to augment labor Admission and Anticipated Discharge Date Admission Date: August 13, 2024 Subjective pt comfortable s/p epidural Physical Exam Constitutional: WD/WN, vitals as above Genitourinary: Manual OB Exam: + cervical dilation 3 cm, + cervical effacement 70% and + station -2 OB Exam Monitor Tracing: + external FHT monitor used and + category I Results & Data Vital Signs (Past 12 Hours) Vital Signs Temp Pulse Resp BP Pulse Ox O2 Del Method 08/14/24 05:39 86 98 08/14/24 05:37 102 H 95/52 L 08/14/24 05:34 79 99 08/14/24 05:29 80 98 08/14/24 05:24 77 99 08/14/24 05:23 75 98/56 L 08/14/24 05:19 80 99 08/14/24 05:14 80 99 08/14/24 05:09 79 99 08/14/24 05:04 75 106/57 L 98 08/14/24 05:00 16 08/14/24 05:00 16 08/14/24 04:59 77 111/55 L 98 08/14/24 04:54 75 117/70 99 08/14/24 04:50 76 100/56 L 08/14/24 04:49 89 99 08/14/24 04:45 73 90/54 L 08/14/24 04:44 85 98 08/14/24 04:40 80 110/64 08/14/24 04:39 80 98 08/14/24 04:36 99 H 104/67 08/14/24 04:34 80 98 08/14/24 04:30 81 18 112/65 08/14/24 04:29 92 H 99 08/14/24 04:24 81 124/71 98 08/14/24 04:22 78 113/66 08/14/24 04:20 91 H 121/67 08/14/24 04:19 83 98 08/14/24 04:18 77 120/67 08/14/24 04:16 72 120/68 08/14/24 04:14 87 99 08/14/24 04:09 80 99 08/14/24 04:07 95 H 90 08/14/24 04:04 77 100 08/14/24 03:59 98 H 100 08/14/24 03:07 36.6 C 82 16 123/71 08/13/24 22:04 20 08/13/24 22:04 37.0 C 20 08/13/24 22:04 73 08/13/24 22:04 124/72 08/13/24 19:10 Room Air 08/13/24 19:02 18 08/13/24 19:02 36.9 C 18 08/13/24 19:02 85 08/13/24 19:02 117/80
[2024-08-14] MEDS: OXYTOCIN 30 UNITS/NSS 30 UNITS/500 ML BAG IV PRN (06:22)
[2024-08-14] MEDS ORDERED: OXYTOCIN 30 UNITS/NSS 30 UNITS/500 ML BAG IV PRN (07:58)
[2024-08-14] MEDS: BUPIVACAINE 0.25% PF 30 ML VIAL ONE (08:04)
[2024-08-14] MEDS: fentaNYL citrate PF 100 MCG/2 ML VIAL EPI STA (08:04)
[2024-08-14] MEDS: BUPIVACAINE 0.25% PF 30 ML VIAL EPI STA (08:04)
[2024-08-14] MEDS: fentaNYL citrate PF 100 MCG/2 ML VIAL ONE (08:04)
[2024-08-14] MEDS: LIDOCAINE 2%/EPINEPHRINE 1:200,000 20 ML PF EPI STA (08:05)
[2024-08-14] MEDS: SODIUM CHLORIDE 0.9% PF INJ 10 ML VIAL EPI STA (08:05)
--- NOTE | 2024-08-14 10:52 | Obstetrical Progress Note ---
Date of Service August 14, 2024 Assessment & Plan (1) Encounter for induction of labor: Plan: Pt doing well Epidural analgesia in place Bedside sono: Vt FHR ; CAT1 Ctx 2-4min Pit; 10 Mu VE; 3-4/50/-1 with bulging membranes AROM with amnio hook- clear fluid Anticipate VD Admission and Anticipated Discharge Date Admission Date: August 13, 2024 Results & Data Vital Signs (Past 12 Hours) Vital Signs Temp Pulse Resp BP Pulse Ox 08/14/24 10:49 82 08/14/24 10:44 88 99 08/14/24 10:39 88 100 08/14/24 10:34 87 99 08/14/24 10:29 95 H 100 08/14/24 10:24 78 98 08/14/24 10:22 71 104/58 L 08/14/24 10:19 77 98 08/14/24 10:14 74 98 08/14/24 10:09 77 99 08/14/24 10:07 72 101/57 L 08/14/24 10:04 71 98 08/14/24 10:00 18 08/14/24 10:00 18 08/14/24 09:59 87 99 08/14/24 09:54 78 100 08/14/24 09:52 76 108/58 L 08/14/24 09:49 81 99 08/14/24 09:44 75 99 08/14/24 09:39 83 98 08/14/24 09:37 80 96/55 L 08/14/24 09:34 81 98 08/14/24 09:30 18 08/14/24 09:30 18 08/14/24 09:29 92 H 99 08/14/24 09:24 77 98 08/14/24 09:23 76 107/68 08/14/24 09:19 77 98 08/14/24 09:14 79 98 08/14/24 09:09 85 98 08/14/24 09:07 77 108/62 08/14/24 09:04 75 99 08/14/24 09:00 20 08/14/24 09:00 20 08/14/24 08:59 76 98 08/14/24 08:54 76 98 08/14/24 08:53 75 104/60 08/14/24 08:49 80 98 08/14/24 08:44 79 98 08/14/24 08:39 79 98 08/14/24 08:37 82 110/68 08/14/24 08:34 84 98 08/14/24 08:30 18 08/14/24 08:30 18 08/14/24 08:29 77 98 08/14/24 08:24 75 99 08/14/24 08:22 81 115/68 08/14/24 08:19 78 99 08/14/24 08:14 83 98 08/14/24 08:09 83 98 08/14/24 08:08 75 115/58 L 08/14/24 08:04 78 98 08/14/24 08:00 18 08/14/24 08:00 18 08/14/24 07:59 78 98 08/14/24 07:54 82 98 08/14/24 07:53 78 111/60 08/14/24 07:49 89 99 08/14/24 07:44 82 99 08/14/24 07:39 75 97 08/14/24 07:37 111 H 103/67 08/14/24 07:34 81 98 08/14/24 07:30 20 08/14/24 07:30 20 08/14/24 07:29 78 98 08/14/24 07:24 89 98 08/14/24 07:23 75 106/61 08/14/24 07:19 84 99 08/14/24 07:15 36.8 C 20 08/14/24 07:14 90 98 08/14/24 07:09 84 99 08/14/24 07:08 79 98/57 L 08/14/24 07:07 20 08/14/24 07:07 20 08/14/24 07:04 78 98 08/14/24 07:00 16 08/14/24 07:00 16 08/14/24 06:59 84 98 08/14/24 06:54 87 98 08/14/24 06:53 85 100/61 08/14/24 06:49 84 98 08/14/24 06:44 81 98 08/14/24 06:39 88 99 08/14/24 06:37 80 97/54 L 08/14/24 06:34 84 98 08/14/24 06:30 16 08/14/24 06:30 16 08/14/24 06:29 91 H 99 08/14/24 06:24 99 H 99 08/14/24 06:22 95 H 103/56 L 08/14/24 06:19 91 H 99 08/14/24 06:14 86 98 08/14/24 06:09 79 98 08/14/24 06:08 75 98/56 L 08/14/24 06:04 80 98 08/14/24 05:59 81 98 08/14/24 05:54 82 98 08/14/24 05:53 77 101/57 L 08/14/24 05:49 81 98 08/14/24 05:44 77 99 08/14/24 05:39 86 98 08/14/24 05:37 102 H 95/52 L 08/14/24 05:34 79 99 08/14/24 05:29 80 98 08/14/24 05:24 77 99 08/14/24 05:23 75 98/56 L 08/14/24 05:19 80 99 08/14/24 05:14 80 99 08/14/24 05:09 79 99 08/14/24 05:04 75 106/57 L 98 08/14/24 05:00 16 08/14/24 05:00 16 08/14/24 04:59 77 111/55 L 98 08/14/24 04:54 75 117/70 99 08/14/24 04:50 76 100/56 L 08/14/24 04:49 89 99 08/14/24 04:45 73 90/54 L 08/14/24 04:44 85 98 08/14/24 04:40 80 110/64 08/14/24 04:39 80 98 08/14/24 04:36 99 H 104/67 08/14/24 04:34 80 98 08/14/24 04:30 81 18 112/65 08/14/24 04:29 92 H 99 08/14/24 04:24 81 124/71 98 08/14/24 04:22 78 113/66 08/14/24 04:20 91 H 121/67 08/14/24 04:19 83 98 08/14/24 04:18 77 120/67 08/14/24 04:16 72 120/68 08/14/24 04:14 87 99 08/14/24 04:09 80 99 08/14/24 04:07 95 H 90 08/14/24 04:04 77 100 08/14/24 03:59 98 H 100 08/14/24 03:07 36.6 C 82 16 123/71
[2024-08-14] MEDS: fentANYL 2 MCG/ML BUPIVacaine 0.125%-NSS 100ML BAG EPI PRN (12:19)
[2024-08-14] MEDS ORDERED: LIDOCAINE 2% 20 MG/ML 5 ML SYR IV ONE (13:12)
[2024-08-14] MEDS: fentaNYL citrate PF 100 MCG/2 ML VIAL EPI PRN (13:14)
--- NOTE | 2024-08-14 13:19 | Anesthesia Procedure Note ---
Date of Service August 14, 2024 Anesthesia Epidural Re-Dose Vital Signs Temp Pulse Resp BP Pulse Ox O2 Del Method 36.5 C 94 H 18 130/85 100 Room Air 08/14/24 12:00 08/14/24 13:17 08/14/24 13:00 08/14/24 13:17 08/14/24 13:16 08/13/24 19:10 Notes Pain Intensity: 8 Dilatation (cm): 7.0 Effacement (%): 100 Called by nursing to evaluate epidural as the patient is having increased pain. The epidural was re-dosed with the following medications (all medications via epidural route) after negative aspiration of the epidural catheter for CSF/HEME. 2% lidocaine 5ml with fentanyl 100mcg. After Epidural Re-Dose Mental Status: alert / awake / arousable Pain: improving with treatment Airway Patency, RR, SpO2: stable & adequate BP & HR: stable & adequate
[2024-08-14] MEDS ORDERED: LIDOCAINE 2% MPF LOCAL 5 ML VIAL ONE (15:42)
[2024-08-14] MEDS ORDERED: fentaNYL citrate PF 100 MCG/2 ML VIAL ONE (15:42)
[2024-08-14] MEDS ORDERED: Nursing to Pharmacy Communication SCH (18:30)
--- NOTE | 2024-08-14 19:31 | Anesthesia Procedure Note ---
Date of Service August 14, 2024 Anesthesia Epidural Re-Dose Vital Signs Temp Pulse Resp BP Pulse Ox O2 Del Method 37.2 C 101 H 16 126/78 98 Room Air 08/14/24 18:58 08/14/24 19:26 08/14/24 18:58 08/14/24 19:26 08/14/24 19:26 08/13/24 19:10 Notes Pain Intensity: 3 Dilatation (cm): 9.0 Effacement (%): 100 Called by nursing to evaluate epidural as the patient is having increased pain. The epidural was re-dosed with the following medications (all medications via epidural route) after negative aspiration of the epidural catheter for CSF/HEME. 2% lidocaine 5ml with fentanyl 100mcg. After Epidural Re-Dose Mental Status: alert / awake / arousable Pain: improving with treatment Airway Patency, RR, SpO2: stable & adequate BP & HR: stable & adequate
--- NOTE | 2024-08-14 19:37 | Obstetrical Progress Note ---
Date of Service August 14, 2024 Assessment & Plan (1) Encounter for induction of labor: Plan: VE: 1 Variable, no late decels Ctx 3-4ins IUPC and scalp placed Admission and Anticipated Discharge Date Admission Date: August 13, 2024 Results & Data Vital Signs (Past 12 Hours) Vital Signs Temp Pulse Resp BP Pulse Ox 08/14/24 19:31 105 H 98 08/14/24 19:26 101 H 126/78 98 08/14/24 19:21 120 H 99 08/14/24 19:16 106 H 99 08/14/24 19:11 105 H 99 08/14/24 19:06 93 H 98 08/14/24 19:01 97 H 99 08/14/24 18:58 16 08/14/24 18:58 37.2 C 16 08/14/24 18:56 100 H 100 08/14/24 18:51 101 H 100 08/14/24 18:46 99 H 99 08/14/24 18:42 92 H 120/72 08/14/24 18:41 96 H 99 08/14/24 18:36 98 H 100 08/14/24 18:31 98 H 100 08/14/24 18:26 100 08/14/24 18:26 102 H 08/14/24 18:26 100 H 125/73 08/14/24 18:21 100 H 100 08/14/24 18:16 113 H 100 08/14/24 18:11 100 08/14/24 18:11 100 H 08/14/24 18:11 102 H 125/72 08/14/24 18:06 94 H 100 08/14/24 18:02 16 08/14/24 18:02 36.6 C 16 08/14/24 18:01 100 H 100 08/14/24 17:58 92 H 122/70 08/14/24 17:56 102 H 99 08/14/24 17:51 92 H 99 08/14/24 17:46 96 H 99 08/14/24 17:42 96 H 123/79 08/14/24 17:41 98 H 100 08/14/24 17:36 98 H 99 08/14/24 17:31 88 99 08/14/24 17:26 99 08/14/24 17:26 95 H 08/14/24 17:26 93 H 123/75 08/14/24 17:21 99 H 100 08/14/24 17:16 95 H 100 08/14/24 17:11 96 H 117/71 100 08/14/24 17:06 108 H 100 08/14/24 17:01 97 H 100 08/14/24 16:56 100 08/14/24 16:56 99 H 08/14/24 16:56 105 H 119/73 08/14/24 16:51 109 H 100 08/14/24 16:46 101 H 100 08/14/24 16:41 112 H 124/75 100 08/14/24 16:36 91 H 98 08/14/24 16:31 106 H 99 08/14/24 16:26 97 08/14/24 16:26 92 H 08/14/24 16:26 107 H 120/77 08/14/24 16:21 106 H 97 08/14/24 16:16 103 H 97 08/14/24 16:11 98 08/14/24 16:11 100 H 08/14/24 16:11 107 H 128/87 08/14/24 16:08 110 H 126/77 08/14/24 16:07 100 H 131/78 08/14/24 16:06 107 H 100 08/14/24 16:04 100 H 123/76 08/14/24 16:02 100 H 125/77 08/14/24 16:01 96 H 96 08/14/24 16:00 95 H 130/79 08/14/24 15:59 94 H 119/76 08/14/24 15:56 121 H 133/81 97 08/14/24 15:54 125 H 128/82 08/14/24 15:52 98 H 120/76 08/14/24 15:51 97 08/14/24 15:51 101 H 08/14/24 15:51 89 127/77 08/14/24 15:48 100 H 136/84 08/14/24 15:47 20 08/14/24 15:47 36.9 C 20 08/14/24 15:46 102 H 97 08/14/24 15:45 93 H 134/81 08/14/24 15:42 99 H 124/76 08/14/24 15:41 106 H 89 L 08/14/24 15:36 117 H 97 08/14/24 15:31 118 H 99 08/14/24 15:28 101 H 115/67 08/14/24 15:26 95 H 100 08/14/24 15:21 112 H 95 08/14/24 15:16 113 H 98 08/14/24 15:13 93 H 115/66 08/14/24 15:11 104 H 98 08/14/24 15:06 93 H 99 08/14/24 15:01 89 97 08/14/24 15:00 20 08/14/24 15:00 20 08/14/24 14:58 95 H 107/60 08/14/24 14:56 86 100 08/14/24 14:51 102 H 98 08/14/24 14:46 88 98 08/14/24 14:43 99 H 112/67 08/14/24 14:41 95 H 99 08/14/24 14:36 93 H 98 08/14/24 14:31 93 H 98 08/14/24 14:30 20 08/14/24 14:30 20 08/14/24 14:26 89 98 08/14/24 14:21 105 H 98 08/14/24 14:18 102 H 124/80 08/14/24 14:16 107 H 98 08/14/24 14:13 89 129/68 08/14/24 14:11 95 H 98 08/14/24 14:09 94 H 131/76 08/14/24 14:06 85 99 08/14/24 14:04 109 H 120/78 08/14/24 14:01 122 H 98 08/14/24 14:00 20 08/14/24 14:00 36.6 C 20 08/14/24 13:58 86 116/74 08/14/24 13:56 90 98 08/14/24 13:53 98 H 123/75 08/14/24 13:51 99 H 99 08/14/24 13:50 100 H 124/78 08/14/24 13:48 98 H 121/77 08/14/24 13:46 86 97 08/14/24 13:43 96 H 116/69 08/14/24 13:41 92 H 98 08/14/24 13:38 90 129/74 08/14/24 13:36 97 H 97 08/14/24 13:33 94 H 121/72 08/14/24 13:31 90 98 08/14/24 13:30 20 08/14/24 13:30 20 08/14/24 13:28 84 114/66 08/14/24 13:26 91 H 123/65 96 08/14/24 13:24 89 122/74 08/14/24 13:22 82 111/58 L 08/14/24 13:21 86 99 08/14/24 13:20 90 118/65 08/14/24 13:18 90 134/78 08/14/24 13:17 94 H 130/85 08/14/24 13:16 100 08/14/24 13:16 97 H 08/14/24 13:16 84 128/81 08/14/24 13:13 89 125/81 08/14/24 13:11 106 H 99 08/14/24 13:07 86 120/75 08/14/24 13:06 87 99 08/14/24 13:01 92 H 100 08/14/24 13:00 18 08/14/24 13:00 18 08/14/24 12:56 87 100 08/14/24 12:53 81 123/70 08/14/24 12:51 101 H 100 08/14/24 12:46 84 99 08/14/24 12:41 96 H 100 08/14/24 12:34 87 99 08/14/24 12:30 20 08/14/24 12:30 20 08/14/24 12:29 88 100 08/14/24 12:24 110 H 99 08/14/24 12:22 101 H 89 L 08/14/24 12:19 102 H 98 08/14/24 12:17 83 129/61 08/14/24 12:14 83 100 08/14/24 12:09 81 99 08/14/24 12:04 117 H 99 08/14/24 12:00 20 08/14/24 12:00 20 08/14/24 12:00 20 08/14/24 12:00 36.5 C 20 08/14/24 11:59 87 100 08/14/24 11:57 107 H 126/70 08/14/24 11:54 83 99 08/14/24 11:49 77 99 08/14/24 11:44 91 H 99 08/14/24 11:39 79 100 08/14/24 11:38 75 116/75 08/14/24 11:34 75 99 08/14/24 11:30 20 08/14/24 11:30 20 08/14/24 11:29 75 99 08/14/24 11:24 74 98 08/14/24 11:22 74 124/71 08/14/24 11:19 79 99 08/14/24 11:14 85 100 08/14/24 11:09 84 100 08/14/24 11:07 78 113/72 08/14/24 11:04 86 100 08/14/24 11:00 18 08/14/24 11:00 36.7 C 18 08/14/24 10:59 78 99 08/14/24 10:54 81 98 08/14/24 10:53 78 111/67 08/14/24 10:49 82 99 08/14/24 10:44 88 99 08/14/24 10:39 88 100 08/14/24 10:34 87 99 08/14/24 10:30 18 08/14/24 10:30 18 08/14/24 10:29 95 H 100 08/14/24 10:24 78 98 08/14/24 10:22 71 104/58 L 08/14/24 10:19 77 98 08/14/24 10:14 74 98 08/14/24 10:09 77 99 08/14/24 10:07 72 101/57 L 08/14/24 10:04 71 98 08/14/24 10:00 18 08/14/24 10:00 18 08/14/24 09:59 87 99 08/14/24 09:54 78 100 08/14/24 09:52 76 108/58 L 08/14/24 09:49 81 99 08/14/24 09:44 75 99 08/14/24 09:39 83 98 08/14/24 09:37 80 96/55 L 08/14/24 09:34 81 98 08/14/24 09:30 18 08/14/24 09:30 18 08/14/24 09:29 92 H 99 08/14/24 09:24 77 98 08/14/24 09:23 76 107/68 08/14/24 09:19 77 98 08/14/24 09:14 79 98 08/14/24 09:09 85 98 08/14/24 09:07 77 108/62 08/14/24 09:04 75 99 08/14/24 09:00 20 08/14/24 09:00 20 08/14/24 08:59 76 98 08/14/24 08:54 76 98 08/14/24 08:53 75 104/60 08/14/24 08:49 80 98 08/14/24 08:44 79 98 08/14/24 08:39 79 98 08/14/24 08:37 82 110/68 08/14/24 08:34 84 98 08/14/24 08:30 18 08/14/24 08:30 18 08/14/24 08:29 77 98 08/14/24 08:24 75 99 08/14/24 08:22 81 115/68 08/14/24 08:19 78 99 08/14/24 08:14 83 98 08/14/24 08:09 83 98 08/14/24 08:08 75 115/58 L 08/14/24 08:04 78 98 08/14/24 08:00 18 08/14/24 08:00 18 08/14/24 07:59 78 98 08/14/24 07:54 82 98 08/14/24 07:53 78 111/60 08/14/24 07:49 89 99 08/14/24 07:44 82 99 08/14/24 07:39 75 97 08/14/24 07:37 111 H 103/67
[2024-08-14] MEDS ORDERED: LIDOCAINE 2%/EPINEPHRINE 1:200,000 20 ML PF ONE (20:44)
--- NOTE | 2024-08-14 20:44 | Obstetrical Progress Note ---
Date of Service August 14, 2024 Assessment & Plan (1) Encounter for induction of labor: Plan: VE: Unchanged x 4 hrs FHR ; Persistent Cat II - Repeated variables Ctx 4-5 mins Discussed above with pt Pt and family agreeable to c/sec Risk and benefits of surgery discussed and reviewed with pt consent signed Admission and Anticipated Discharge Date Admission Date: August 13, 2024 Results & Data Vital Signs (Past 12 Hours) Vital Signs Temp Pulse Resp BP Pulse Ox 08/14/24 20:36 113 H 99 08/14/24 20:31 115 H 98 08/14/24 20:26 98 08/14/24 20:26 120 H 08/14/24 20:26 123 H 138/82 08/14/24 20:25 118 H 84 L 08/14/24 20:21 115 H 99 08/14/24 20:16 120 H 99 08/14/24 20:11 97 08/14/24 20:11 99 H 08/14/24 20:11 98 H 115/65 08/14/24 20:06 106 H 99 08/14/24 20:01 99 H 98 08/14/24 19:57 94 H 134/80 08/14/24 19:56 97 H 98 08/14/24 19:51 102 H 98 08/14/24 19:46 102 H 99 08/14/24 19:41 98 08/14/24 19:41 97 H 08/14/24 19:41 91 H 119/72 08/14/24 19:36 104 H 98 08/14/24 19:31 105 H 98 08/14/24 19:26 101 H 126/78 98 08/14/24 19:21 120 H 99 08/14/24 19:16 106 H 99 08/14/24 19:11 105 H 99 08/14/24 19:06 93 H 98 08/14/24 19:01 97 H 99 08/14/24 18:58 16 08/14/24 18:58 37.2 C 16 08/14/24 18:56 100 H 100 08/14/24 18:51 101 H 100 08/14/24 18:46 99 H 99 08/14/24 18:42 92 H 120/72 08/14/24 18:41 96 H 99 08/14/24 18:36 98 H 100 08/14/24 18:31 98 H 100 08/14/24 18:26 100 08/14/24 18:26 102 H 08/14/24 18:26 100 H 125/73 08/14/24 18:21 100 H 100 08/14/24 18:16 113 H 100 08/14/24 18:11 100 08/14/24 18:11 100 H 08/14/24 18:11 102 H 125/72 08/14/24 18:06 94 H 100 08/14/24 18:02 16 08/14/24 18:02 36.6 C 16 08/14/24 18:01 100 H 100 08/14/24 17:58 92 H 122/70 08/14/24 17:56 102 H 99 08/14/24 17:51 92 H 99 08/14/24 17:46 96 H 99 08/14/24 17:42 96 H 123/79 08/14/24 17:41 98 H 100 08/14/24 17:36 98 H 99 08/14/24 17:31 88 99 08/14/24 17:26 99 08/14/24 17:26 95 H 08/14/24 17:26 93 H 123/75 08/14/24 17:21 99 H 100 08/14/24 17:16 95 H 100 08/14/24 17:11 96 H 117/71 100 08/14/24 17:06 108 H 100 08/14/24 17:01 97 H 100 08/14/24 16:56 100 08/14/24 16:56 99 H 08/14/24 16:56 105 H 119/73 08/14/24 16:51 109 H 100 08/14/24 16:46 101 H 100 08/14/24 16:41 112 H 124/75 100 08/14/24 16:36 91 H 98 08/14/24 16:31 106 H 99 08/14/24 16:26 97 08/14/24 16:26 92 H 08/14/24 16:26 107 H 120/77 08/14/24 16:21 106 H 97 08/14/24 16:16 103 H 97 08/14/24 16:11 98 08/14/24 16:11 100 H 08/14/24 16:11 107 H 128/87 08/14/24 16:08 110 H 126/77 08/14/24 16:07 100 H 131/78 08/14/24 16:06 107 H 100 08/14/24 16:04 100 H 123/76 08/14/24 16:02 100 H 125/77 08/14/24 16:01 96 H 96 08/14/24 16:00 95 H 130/79 08/14/24 15:59 94 H 119/76 08/14/24 15:56 121 H 133/81 97 08/14/24 15:54 125 H 128/82 08/14/24 15:52 98 H 120/76 08/14/24 15:51 97 08/14/24 15:51 101 H 08/14/24 15:51 89 127/77 08/14/24 15:48 100 H 136/84 08/14/24 15:47 20 08/14/24 15:47 36.9 C 20 08/14/24 15:46 102 H 97 08/14/24 15:45 93 H 134/81 08/14/24 15:42 99 H 124/76 08/14/24 15:41 106 H 89 L 08/14/24 15:36 117 H 97 08/14/24 15:31 118 H 99 08/14/24 15:28 101 H 115/67 08/14/24 15:26 95 H 100 08/14/24 15:21 112 H 95 08/14/24 15:16 113 H 98 08/14/24 15:13 93 H 115/66 08/14/24 15:11 104 H 98 08/14/24 15:06 93 H 99 08/14/24 15:01 89 97 08/14/24 15:00 20 08/14/24 15:00 20 08/14/24 14:58 95 H 107/60 08/14/24 14:56 86 100 08/14/24 14:51 102 H 98 08/14/24 14:46 88 98 08/14/24 14:43 99 H 112/67 08/14/24 14:41 95 H 99 08/14/24 14:36 93 H 98 08/14/24 14:31 93 H 98 08/14/24 14:30 20 08/14/24 14:30 20 08/14/24 14:26 89 98 08/14/24 14:21 105 H 98 08/14/24 14:18 102 H 124/80 08/14/24 14:16 107 H 98 08/14/24 14:13 89 129/68 08/14/24 14:11 95 H 98 08/14/24 14:09 94 H 131/76 08/14/24 14:06 85 99 08/14/24 14:04 109 H 120/78 08/14/24 14:01 122 H 98 08/14/24 14:00 20 08/14/24 14:00 36.6 C 20 08/14/24 13:58 86 116/74 08/14/24 13:56 90 98 08/14/24 13:53 98 H 123/75 08/14/24 13:51 99 H 99 08/14/24 13:50 100 H 124/78 08/14/24 13:48 98 H 121/77 08/14/24 13:46 86 97 08/14/24 13:43 96 H 116/69 08/14/24 13:41 92 H 98 08/14/24 13:38 90 129/74 08/14/24 13:36 97 H 97 08/14/24 13:33 94 H 121/72 08/14/24 13:31 90 98 08/14/24 13:30 20 08/14/24 13:30 20 08/14/24 13:28 84 114/66 08/14/24 13:26 91 H 123/65 96 08/14/24 13:24 89 122/74 08/14/24 13:22 82 111/58 L 08/14/24 13:21 86 99 08/14/24 13:20 90 118/65 08/14/24 13:18 90 134/78 08/14/24 13:17 94 H 130/85 08/14/24 13:16 100 08/14/24 13:16 97 H 08/14/24 13:16 84 128/81 08/14/24 13:13 89 125/81 08/14/24 13:11 106 H 99 08/14/24 13:07 86 120/75 08/14/24 13:06 87 99 08/14/24 13:01 92 H 100 08/14/24 13:00 18 08/14/24 13:00 18 08/14/24 12:56 87 100 08/14/24 12:53 81 123/70 08/14/24 12:51 101 H 100 08/14/24 12:46 84 99 08/14/24 12:41 96 H 100 08/14/24 12:34 87 99 08/14/24 12:30 20 08/14/24 12:30 20 08/14/24 12:29 88 100 08/14/24 12:24 110 H 99 08/14/24 12:22 101 H 89 L 08/14/24 12:19 102 H 98 08/14/24 12:17 83 129/61 08/14/24 12:14 83 100 08/14/24 12:09 81 99 08/14/24 12:04 117 H 99 08/14/24 12:00 20 08/14/24 12:00 20 08/14/24 12:00 20 08/14/24 12:00 36.5 C 20 08/14/24 11:59 87 100 08/14/24 11:57 107 H 126/70 08/14/24 11:54 83 99 08/14/24 11:49 77 99 08/14/24 11:44 91 H 99 08/14/24 11:39 79 100 08/14/24 11:38 75 116/75 08/14/24 11:34 75 99 08/14/24 11:30 20 08/14/24 11:30 20 08/14/24 11:29 75 99 08/14/24 11:24 74 98 08/14/24 11:22 74 124/71 08/14/24 11:19 79 99 08/14/24 11:14 85 100 08/14/24 11:09 84 100 08/14/24 11:07 78 113/72 08/14/24 11:04 86 100 08/14/24 11:00 18 08/14/24 11:00 36.7 C 18 08/14/24 10:59 78 99 08/14/24 10:54 81 98 08/14/24 10:53 78 111/67 08/14/24 10:49 82 99 08/14/24 10:44 88 99 08/14/24 10:39 88 100 08/14/24 10:34 87 99 08/14/24 10:30 18 08/14/24 10:30 18 08/14/24 10:29 95 H 100 08/14/24 10:24 78 98 08/14/24 10:22 71 104/58 L 08/14/24 10:19 77 98 08/14/24 10:14 74 98 08/14/24 10:09 77 99 08/14/24 10:07 72 101/57 L 08/14/24 10:04 71 98 08/14/24 10:00 18 08/14/24 10:00 18 08/14/24 09:59 87 99 08/14/24 09:54 78 100 08/14/24 09:52 76 108/58 L 08/14/24 09:49 81 99 08/14/24 09:44 75 99 08/14/24 09:39 83 98 08/14/24 09:37 80 96/55 L 08/14/24 09:34 81 98 08/14/24 09:30 18 08/14/24 09:30 18 08/14/24 09:29 92 H 99 08/14/24 09:24 77 98 08/14/24 09:23 76 107/68 08/14/24 09:19 77 98 08/14/24 09:14 79 98 08/14/24 09:09 85 98 08/14/24 09:07 77 108/62 08/14/24 09:04 75 99 08/14/24 09:00 20 08/14/24 09:00 20 08/14/24 08:59 76 98 08/14/24 08:54 76 98 08/14/24 08:53 75 104/60 08/14/24 08:49 80 98 08/14/24 08:44 79 98
[2024-08-14] MEDS: LACTATED RINGER'S 1,000 ML IV SCH (20:49)
[2024-08-14] MEDS: CITRIC ACID/SODIUM CITRATE 15 ML UDC PO SCH ×2 (20:58→22:28)
[2024-08-14] MEDS: ACETAMINOPHEN 500 MG TAB ONE (20:58)
[2024-08-14] MEDS: cefOXitin 2,000 MG in DEXTROSE 5 % MINI-B 50 ML IV SCH (21:00)
[2024-08-14] MEDS ORDERED: PHENYLEPHRINE 100MCG/ML 10ML SYR IV ONE (21:40)
[2024-08-14] MEDS ORDERED: OXYTOCIN 10 UNITS/ML VIAL ONE (21:41)
[2024-08-14] MEDS ORDERED: MoRPHine SULFATE PF 1 MG/ML 10 ML AMP/VIAL ONE (21:42)
[2024-08-14 21:51] LABS: Base Excess Cord Arterial Bld -4.5 mEq/L (-9-1.8); Base Excess Cord Venous Blood -2.5 mEq/L (-7.7-1.9); CO2 Cord Arterial Blood 36 mmHg (39.1-73.5); Cord Venous Blood HCO3 25 mmol/L (18.4-26.8); Cord Venous Blood PCO2 55 mmHg (30.4-57.2); Cord Venous Blood PO2 < 20 mmHg (14.1-43.3); Cord Venous Blood pH 7.27 (7.20-7.44); HCO3 Cord Arterial Blood 20 mmol/L (19.7-28.5); O2 Saturation Cord Venous Bld < 60.0 % (<68); Oxygen Sat Cord Arterial Blood < 60.0 % (<60); PO2 Cord Arterial Blood 23 mmHg (4.1-31.7); pH Cord Arterial Blood 7.36 (7.1-7.38)
[2024-08-14] MEDS: miSOPROStoL 200 MCG TAB ONE (21:55)
[2024-08-14] MEDS ORDERED: BENZOCAINE 20% SPRY 85 APPLN/85 GM CAN EXT PRN (22:02)
[2024-08-14] MEDS ORDERED: SENNA 8.6 MG TAB PO PRN (22:02)
[2024-08-14] MEDS ORDERED: HYDROCORTISONE ACETATE 25 MG SUPP PR PRN (22:02)
[2024-08-14] MEDS ORDERED: CALCIUM CARBONATE 500 MG CHEWABLE TAB PO PRN (22:02)
[2024-08-14] MEDS ORDERED: MAGNESIUM HYDROXIDE SUSP 30 ML UDC PO PRN (22:02)
--- NOTE | 2024-08-14 22:12 | Operative Report ---
Post Operative Report Pre & Post Diagnosis Operation Date: 08/14/24 20:50 Pre-Op Diagnosis: 1. Failure to decend. 2. intolerance. Post-Op Diagnosis: Same. I identified the patient and participated in the time-out.: Yes Procedure Operation Date: 08/14/24 20:50 Actual Procedures p Section in LD with the delivery of a live male child at 2121. - Paolo Davis MD Surgeon Paolo Davis MD Button Tufting Machine Operator Amara Owen RN Estimated Blood Loss 496 Findings Consistent with Post-Op Diagnosis Live male in OP position. NMl uterus tubes and ovaries Fluids IVF 800 urine 250 Ml QBL" 496ml Specimens Placenta Cord gasses cord blood Drains none Anesthesia Type Labor Epidural Complications None Indications Failure to descend Persistent Cat II strip Description of Procedure Patient brought to the operating room Prepped and draped in normal sterile fashion in dorsal supine position with a leftward tilt. Time out is performed. Patient is identified by name and date of . Allergy and antibiotics and reviewed and confirmed. Skin check is performed to see if anesthesia is adequate A Pfannenstiel incision is made and carried out to the fascia with a scalpel. Fascia is incised in the midline extended laterally on both sides with Sung scissors. Jose's were used to grab the superior part of the fascial incision and the rectus abdominis muscle dissected with Sung scissors.. Same procedure was performed on the lower section of the fascia. The rectus muscle is then in the midline and the peritoneum identified, tented up and entered sharply with the Metzenbaum scissors. The peritoneal incision was then extended superiorly and inferiorly with good visualization of the bladder. An Meño retractor was then inserted to provide better visualization and retraction. Vesicouterine peritoneum was identified, grasped with pickups and entered sha rply with Metzenbaum scissors. The incision was then extended laterally and the bladder flap created with Metzenbaum scissors. The lower uterine segment incision was performed in a transverse fashion with a scalpel. Uterine incision was then extended laterally with the bandage scissors. Amniotic fluid is clear The 's head was delivered atraumatically. There is no nuchal cord. Nose and mouth suctioned with the bulb suction. Delayed cord clamping performed and cord is then clamped and cut and infant is handed over to the waiting pediatric team. Cord blood and gases obtained The placenta is then removed manually the uterus is exteriorized and cleared of all clots and debris. Uterine incision it repaired with 0-Vicryl in a locking fashion. A second layer of 0-Vicryl is used to obtain excellent hemostasis. Uterus is placed back into the abdominal cavity. The bladder flap was repaired in a running fashion with plain suture. Copious amount of irrigation was used to irrigate the abdomen. Gutters were cleared of all clots and debris . Hemostasis was obtained. The Meño retractor is removed as well as sponges or instruments in the abdomen. The peritoneum was identified and closed in a running fashion using plain suture. The rectus abdominis muscle was examined to ensure there no bleeding. The rectus abdominis muscle was approximated loosely using plain suture in a [id number] manner. Once again hemostasis is confirmed. The fascia was grasped with Colon's and closed in a running fashion. Both fascial layers are closed together using 0-Vicryl suture. Subcutaneous space is irrigated and hemostasis was confirmed. Subcutaneous space is approximated with plain suture. Skin is closed with mariia. The patient tolerated procedure well sponge just labs needle counts were correct x2 patient is sent to recovery in stable condition I attest to the content of the Intraoperative Record and any orders documented therein. Any exceptions are noted below.
[2024-08-14] MEDS ORDERED: NALOXONE HCL 0.08 MG in SYRINGE 1.8 ML IV PRN (22:26)
[2024-08-14] MEDS ORDERED: MoRPHine SULFATE 2 MG/ML CARP IV PRN (22:26)
[2024-08-14] MEDS ORDERED: METOCLOPRAMIDE HCL 20 MG in SODIUM CHLORIDE 0.9% 50 ML IV PRN (22:26)
[2024-08-14] MEDS ORDERED: ONDANSETRON INJ 2 MG/ML 2 ML VIAL IV PRN (22:26)
[2024-08-14] MEDS ORDERED: HYDROmorphone INJ 0.5 MG/0.5 ML SYR IV PRN (22:26)
[2024-08-14] MEDS ORDERED: LACTATED RINGER'S 500 ML IV PRN (22:26)
[2024-08-14] MEDS ORDERED: MEPERIDINE HCL 25 MG/ML CARP/VIAL IV PRN (22:26)
[2024-08-14] MEDS ORDERED: KETOROLAC 30 MG/ML VIAL IV PRN (22:26)
[2024-08-14] MEDS ORDERED: PROMETHAZINE 6.25 MG/50.25 ML BAG IV PRN (22:26)
[2024-08-14] MEDS: ACETAMINOPHEN 500 MG TAB PO SCH (22:28)
[2024-08-14] MEDS: CITRIC ACID/SODIUM CITRATE 15 ML UDC ONE (22:28)
--- NOTE | 2024-08-14 22:29 | Anesthesia Procedure Note ---
Date of Service August 14, 2024 Anesthesia Post Epidural Note Vital Signs Vital Signs: Temp Pulse Resp BP Pulse Ox O2 Del Method 36.9 C 136 H 16 158/71 H 95 Room Air 08/14/24 22:10 08/14/24 22:27 08/14/24 22:20 08/14/24 22:04 08/14/24 22:27 08/14/24 22:20 Pain Intensity Left Hip: Pain Intensity: 3 Notes Mental Status: alert / awake / arousable Nausea / Vomiting: adequately controlled Pain: adequately controlled Airway Patency, RR, SpO2: stable & adequate BP & HR: stable & adequate Hydration State: stable & adequate Neuraxial Anesthesia: was administered and sensory block is resolving Anesthetic Complications: no major complications apparent and Pt Satisfied with anesthetic care Epidural: Removed without complications and With tip intact
[2024-08-14] MEDS ORDERED: NO NARCOTICS OR SEDATIVES SCH (22:30)
[2024-08-14] MEDS ORDERED: DC INTRASPINAL MORPHINE SCH (22:30)
[2024-08-14] MEDS: DIPHTHER/TETAN/PERTUS Vaccine (Tdap, Adol/Adult) 0.5mL IM ONE (22:54)
[2024-08-14] MEDS ORDERED: ACETAMINOPHEN 1,000 MG/100 ML VIAL IV STA (23:40)
[2024-08-15] MEDS: OXYTOCIN 10 UNITS in LACTATED RINGER'S 1,000 ML IV SCH (00:23)
--- NOTE | 2024-08-15 00:40 | Anesthesiology Progress Note ---
Date of Service August 15, 2024 Anesthesia Post Procedure Vital Signs Vital Signs: Temp Pulse Resp BP Pulse Ox O2 Del Method 08/15/24 00:27 109 H 94 08/15/24 00:26 108 H 94 08/15/24 00:22 105 H 93 08/15/24 00:21 109 H 94 08/15/24 00:17 98 H 93 08/15/24 00:15 105 H 94 08/15/24 00:12 111 H 94 08/15/24 00:10 36.9 C 16 08/15/24 00:09 115 H 94 08/15/24 00:07 106 H 93 08/15/24 00:02 107 H 94 08/14/24 23:57 103 H 94 08/14/24 23:55 104 H 94 08/14/24 23:52 108 H 95 08/14/24 23:49 110 H 94 08/14/24 23:47 105 H 95 08/14/24 23:42 99 H 94 08/14/24 23:40 16 95 Room Air 08/14/24 23:37 107 H 94 08/14/24 23:32 115 H 95 08/14/24 23:31 119 H 94 08/14/24 23:27 117 H 95 08/14/24 23:26 116 H 94 08/14/24 23:22 117 H 95 08/14/24 23:21 122 H 94 08/14/24 23:17 122 H 94 08/14/24 23:16 119 H 94 08/14/24 23:12 125 H 95 08/14/24 23:11 121 H 94 08/14/24 23:10 18 95 Room Air 08/14/24 23:07 110 H 95 08/14/24 23:02 116 H 95 08/14/24 23:00 18 95 Room Air 08/14/24 22:59 121 H 94 08/14/24 22:57 125 H 95 08/14/24 22:52 122 H 95 08/14/24 22:50 36.9 C 16 95 Room Air 08/14/24 22:47 125 H 95 08/14/24 22:42 137 H 95 08/14/24 22:40 36.9 C 16 95 Room Air 08/14/24 22:37 138 H 95 08/14/24 22:32 138 H 95 08/14/24 22:30 16 95 Room Air 08/14/24 22:27 136 H 95 08/14/24 22:22 137 H 95 08/14/24 22:20 16 95 Room Air 08/14/24 22:17 131 H 95 08/14/24 22:12 129 H 95 08/14/24 22:10 36.9 C 16 99 Room Air 08/14/24 22:07 128 H 95 08/14/24 22:04 131 H 158/71 H 08/14/24 20:51 127 H 99 08/14/24 20:46 107 H 100 08/14/24 20:41 98 08/14/24 20:41 114 H 08/14/24 20:41 115 H 129/84 08/14/24 20:36 113 H 99 08/14/24 20:31 115 H 98 08/14/24 20:26 98 08/14/24 20:26 120 H 08/14/24 20:26 123 H 138/82 08/14/24 20:25 118 H 84 L 08/14/24 20:21 115 H 99 08/14/24 20:16 120 H 99 08/14/24 20:11 97 08/14/24 20:11 99 H 08/14/24 20:11 98 H 115/65 08/14/24 20:06 106 H 99 08/14/24 20:01 99 H 98 08/14/24 19:57 94 H 134/80 08/14/24 19:56 97 H 98 08/14/24 19:51 102 H 98 08/14/24 19:46 102 H 99 08/14/24 19:41 98 08/14/24 19:41 97 H 08/14/24 19:41 91 H 119/72 08/14/24 19:36 104 H 98 08/14/24 19:31 105 H 98 08/14/24 19:26 101 H 126/78 98 08/14/24 19:21 120 H 99 08/14/24 19:16 106 H 99 08/14/24 19:11 105 H 99 08/14/24 19:06 93 H 98 08/14/24 19:01 97 H 99 08/14/24 18:58 16 08/14/24 18:58 37.2 C 16 08/14/24 18:56 100 H 100 08/14/24 18:51 101 H 100 08/14/24 18:46 99 H 99 08/14/24 18:42 92 H 120/72 08/14/24 18:41 96 H 99 08/14/24 18:36 98 H 100 08/14/24 18:31 98 H 100 08/14/24 18:26 100 08/14/24 18:26 102 H 08/14/24 18:26 100 H 125/73 08/14/24 18:21 100 H 100 08/14/24 18:16 113 H 100 08/14/24 18:11 100 08/14/24 18:11 100 H 08/14/24 18:11 102 H 125/72 08/14/24 18:06 94 H 100 08/14/24 18:02 16 08/14/24 18:02 36.6 C 16 08/14/24 18:01 100 H 100 08/14/24 17:58 92 H 122/70 08/14/24 17:56 102 H 99 08/14/24 17:51 92 H 99 08/14/24 17:46 96 H 99 08/14/24 17:42 96 H 123/79 08/14/24 17:41 98 H 100 08/14/24 17:36 98 H 99 08/14/24 17:31 88 99 08/14/24 17:26 99 08/14/24 17:26 95 H 08/14/24 17:26 93 H 123/75 08/14/24 17:21 99 H 100 08/14/24 17:16 95 H 100 08/14/24 17:11 96 H 117/71 100 08/14/24 17:06 108 H 100 08/14/24 17:01 97 H 100 08/14/24 16:56 100 08/14/24 16:56 99 H 08/14/24 16:56 105 H 119/73 08/14/24 16:51 109 H 100 08/14/24 16:46 101 H 100 08/14/24 16:41 112 H 124/75 100 08/14/24 16:36 91 H 98 08/14/24 16:31 106 H 99 08/14/24 16:26 97 08/14/24 16:26 92 H 08/14/24 16:26 107 H 120/77 08/14/24 16:21 106 H 97 08/14/24 16:16 103 H 97 08/14/24 16:11 98 08/14/24 16:11 100 H 08/14/24 16:11 107 H 128/87 08/14/24 16:08 110 H 126/77 08/14/24 16:07 100 H 131/78 08/14/24 16:06 107 H 100 08/14/24 16:04 100 H 123/76 08/14/24 16:02 100 H 125/77 08/14/24 16:01 96 H 96 08/14/24 16:00 95 H 130/79 08/14/24 15:59 94 H 119/76 08/14/24 15:56 121 H 133/81 97 08/14/24 15:54 125 H 128/82 08/14/24 15:52 98 H 120/76 08/14/24 15:51 97 08/14/24 15:51 101 H 08/14/24 15:51 89 127/77 08/14/24 15:48 100 H 136/84 08/14/24 15:47 20 08/14/24 15:47 36.9 C 20 08/14/24 15:46 102 H 97 08/14/24 15:45 93 H 134/81 08/14/24 15:42 99 H 124/76 08/14/24 15:41 106 H 89 L 08/14/24 15:36 117 H 97 08/14/24 15:31 118 H 99 08/14/24 15:28 101 H 115/67 08/14/24 15:26 95 H 100 08/14/24 15:21 112 H 95 08/14/24 15:16 113 H 98 08/14/24 15:13 93 H 115/66 08/14/24 15:11 104 H 98 08/14/24 15:06 93 H 99 08/14/24 15:01 89 97 08/14/24 15:00 20 08/14/24 15:00 20 08/14/24 14:58 95 H 107/60 08/14/24 14:56 86 100 08/14/24 14:51 102 H 98 08/14/24 14:46 88 98 08/14/24 14:43 99 H 112/67 08/14/24 14:41 95 H 99 08/14/24 14:36 93 H 98 08/14/24 14:31 93 H 98 08/14/24 14:30 20 08/14/24 14:30 20 08/14/24 14:26 89 98 08/14/24 14:21 105 H 98 08/14/24 14:18 102 H 124/80 08/14/24 14:16 107 H 98 08/14/24 14:13 89 129/68 08/14/24 14:11 95 H 98 08/14/24 14:09 94 H 131/76 08/14/24 14:06 85 99 08/14/24 14:04 109 H 120/78 08/14/24 14:01 122 H 98 08/14/24 14:00 20 08/14/24 14:00 36.6 C 20 08/14/24 13:58 86 116/74 08/14/24 13:56 90 98 08/14/24 13:53 98 H 123/75 08/14/24 13:51 99 H 99 08/14/24 13:50 100 H 124/78 08/14/24 13:48 98 H 121/77 08/14/24 13:46 86 97 08/14/24 13:43 96 H 116/69 08/14/24 13:41 92 H 98 08/14/24 13:38 90 129/74 08/14/24 13:36 97 H 97 08/14/24 13:33 94 H 121/72 08/14/24 13:31 90 98 08/14/24 13:30 20 08/14/24 13:30 20 08/14/24 13:28 84 114/66 08/14/24 13:26 91 H 123/65 96 08/14/24 13:24 89 122/74 08/14/24 13:22 82 111/58 L 08/14/24 13:21 86 99 08/14/24 13:20 90 118/65 08/14/24 13:18 90 134/78 08/14/24 13:17 94 H 130/85 08/14/24 13:16 100 08/14/24 13:16 97 H 08/14/24 13:16 84 128/81 08/14/24 13:13 89 125/81 08/14/24 13:11 106 H 99 08/14/24 13:07 86 120/75 08/14/24 13:06 87 99 08/14/24 13:01 92 H 100 08/14/24 13:00 18 08/14/24 13:00 18 08/14/24 12:56 87 100 08/14/24 12:53 81 123/70 08/14/24 12:51 101 H 100 08/14/24 12:46 84 99 08/14/24 12:41 96 H 100 08/14/24 12:34 87 99 08/14/24 12:30 20 08/14/24 12:30 20 08/14/24 12:29 88 100 08/14/24 12:24 110 H 99 08/14/24 12:22 101 H 89 L 08/14/24 12:19 102 H 98 08/14/24 12:17 83 129/61 08/14/24 12:14 83 100 08/14/24 12:09 81 99 08/14/24 12:04 117 H 99 08/14/24 12:00 20 08/14/24 12:00 20 08/14/24 12:00 20 08/14/24 12:00 36.5 C 20 08/14/24 11:59 87 100 08/14/24 11:57 107 H 126/70 08/14/24 11:54 83 99 08/14/24 11:49 77 99 08/14/24 11:44 91 H 99 08/14/24 11:39 79 100 08/14/24 11:38 75 116/75 08/14/24 11:34 75 99 08/14/24 11:30 20 08/14/24 11:30 20 08/14/24 11:29 75 99 08/14/24 11:24 74 98 08/14/24 11:22 74 124/71 08/14/24 11:19 79 99 08/14/24 11:14 85 100 08/14/24 11:09 84 100 08/14/24 11:07 78 113/72 08/14/24 11:04 86 100 08/14/24 11:00 18 08/14/24 11:00 36.7 C 18 08/14/24 10:59 78 99 08/14/24 10:54 81 98 08/14/24 10:53 78 111/67 08/14/24 10:49 82 99 08/14/24 10:44 88 99 08/14/24 10:39 88 100 08/14/24 10:34 87 99 08/14/24 10:30 18 08/14/24 10:30 18 08/14/24 10:29 95 H 100 08/14/24 10:24 78 98 08/14/24 10:22 71 104/58 L 08/14/24 10:19 77 98 08/14/24 10:14 74 98 08/14/24 10:09 77 99 08/14/24 10:07 72 101/57 L 08/14/24 10:04 71 98 08/14/24 10:00 18 08/14/24 10:00 18 08/14/24 09:59 87 99 08/14/24 09:54 78 100 08/14/24 09:52 76 108/58 L 08/14/24 09:49 81 99 08/14/24 09:44 75 99 08/14/24 09:39 83 98 08/14/24 09:37 80 96/55 L 08/14/24 09:34 81 98 08/14/24 09:30 18 08/14/24 09:30 18 08/14/24 09:29 92 H 99 08/14/24 09:24 77 98 08/14/24 09:23 76 107/68 08/14/24 09:19 77 98 08/14/24 09:14 79 98 08/14/24 09:09 85 98 08/14/24 09:07 77 108/62 08/14/24 09:04 75 99 08/14/24 09:00 20 08/14/24 09:00 20 08/14/24 08:59 76 98 08/14/24 08:54 76 98 08/14/24 08:53 75 104/60 08/14/24 08:49 80 98 08/14/24 08:44 79 98 08/14/24 08:39 79 98 08/14/24 08:37 82 110/68 08/14/24 08:34 84 98 08/14/24 08:30 18 08/14/24 08:30 18 08/14/24 08:29 77 98 08/14/24 08:24 75 99 08/14/24 08:22 81 115/68 08/14/24 08:19 78 99 08/14/24 08:14 83 98 08/14/24 08:09 83 98 08/14/24 08:08 75 115/58 L 08/14/24 08:04 78 98 08/14/24 08:00 18 08/14/24 08:00 18 08/14/24 07:59 78 98 08/14/24 07:54 82 98 08/14/24 07:53 78 111/60 08/14/24 07:49 89 99 08/14/24 07:44 82 99 08/14/24 07:39 75 97 08/14/24 07:37 111 H 103/67 08/14/24 07:34 81 98 08/14/24 07:30 20 08/14/24 07:30 20 08/14/24 07:29 78 98 08/14/24 07:24 89 98 08/14/24 07:23 75 106/61 08/14/24 07:19 84 99 08/14/24 07:15 36.8 C 20 08/14/24 07:14 90 98 08/14/24 07:09 84 99 08/14/24 07:08 79 98/57 L 08/14/24 07:07 20 08/14/24 07:07 20 08/14/24 07:04 78 98 08/14/24 07:00 16 08/14/24 07:00 16 08/14/24 06:59 84 98 08/14/24 06:54 87 98 08/14/24 06:53 85 100/61 08/14/24 06:49 84 98 08/14/24 06:44 81 98 08/14/24 06:39 88 99 08/14/24 06:37 80 97/54 L 08/14/24 06:34 84 98 08/14/24 06:30 16 08/14/24 06:30 16 08/14/24 06:29 91 H 99 08/14/24 06:24 99 H 99 08/14/24 06:22 95 H 103/56 L 08/14/24 06:19 91 H 99 08/14/24 06:14 86 98 08/14/24 06:09 79 98 08/14/24 06:08 75 98/56 L 08/14/24 06:04 80 98 08/14/24 05:59 81 98 08/14/24 05:54 82 98 08/14/24 05:53 77 101/57 L 08/14/24 05:49 81 98 08/14/24 05:44 77 99 08/14/24 05:39 86 98 08/14/24 05:37 102 H 95/52 L 08/14/24 05:34 79 99 08/14/24 05:29 80 98 08/14/24 05:24 77 99 08/14/24 05:23 75 98/56 L 08/14/24 05:19 80 99 08/14/24 05:14 80 99 08/14/24 05:09 79 99 08/14/24 05:04 75 106/57 L 98 08/14/24 05:00 16 08/14/24 05:00 16 08/14/24 04:59 77 111/55 L 98 08/14/24 04:54 75 117/70 99 08/14/24 04:50 76 100/56 L 08/14/24 04:49 89 99 08/14/24 04:45 73 90/54 L 08/14/24 04:44 85 98 08/14/24 04:40 80 110/64 08/14/24 04:39 80 98 08/14/24 04:36 99 H 104/67 08/14/24 04:34 80 98 08/14/24 04:30 81 18 112/65 08/14/24 04:29 92 H 99 08/14/24 04:24 81 124/71 98 08/14/24 04:22 78 113/66 08/14/24 04:20 91 H 121/67 08/14/24 04:19 83 98 08/14/24 04:18 77 120/67 08/14/24 04:16 72 120/68 08/14/24 04:14 87 99 08/14/24 04:09 80 99 08/14/24 04:07 95 H 90 08/14/24 04:04 77 100 08/14/24 03:59 98 H 100 08/14/24 03:07 36.6 C 82 16 123/71 Pain Intensity Left Hip: Pain Intensity: 3 Transfer of Care Handoff Completed per policy Notes Mental Status: alert / awake / arousable and participated in evaluation Nausea / Vomiting: adequately controlled Pain: adequately controlled Airway Patency, RR, SpO2: stable & adequate BP & HR: stable & adequate Hydration State: stable & adequate Neuraxial Anesthesia: was administered and sensory block is resolving Anesthetic Complications: no major complications apparent and Pt Satisfied with anesthetic care
[2024-08-15] MEDS: IBUPROFEN 600 MG TAB PO SCH (00:44)
[2024-08-15] MEDS: LACTATED RINGER'S 1,000 ML IV SCH ×2 (01:21)
[2024-08-15] MEDS: ACETAMINOPHEN 325 MG TAB PO SCH (03:55)
[2024-08-15 06:18] LABS: Basophils # (auto) 0.03 K/uL (0.00-0.20); Basophils % (auto) 0.2 %; Eosinophils # (auto) 0.01 K/uL (0.00-0.50); Eosinophils % (auto) 0.1 %; Hematocrit (blood only) 28.4 % (37.0-47.0); Hemoglobin 9.1 g/dl (12.0-16.0); Immature Granulocytes # (auto) 0.14 K/uL (0.01-0.20); Immature Granulocytes % (auto) 0.8 %; Lymphocytes # (auto) 1.16 K/uL (1.20-3.40); Mean Corpuscular Hemoglobin 25.4 pg (25.0-34.0); Mean Corpuscular Volume 79.3 fL (80.0-100.0); Mean Platelet Volume 9.4 fL (9.4-12.4); Monocytes # (auto) 1.02 K/uL (0.11-0.59); Monocytes % (auto) 6.2 %; Neutrophils # (auto) 14.18 K/uL (1.40-6.50); Neutrophils % (auto) 85.7 %; Platelet Count 221 K/uL (130-400); RDW Coefficient of Variation 14.3 % (11.5-14.5); RDW Standard Deviation 41.1 fL (36.4-46.3); Red Blood Count 3.58 M/uL (4.20-5.40); White Blood Count 16.54 K/ul (4.8-10.8)
[2024-08-15] MEDS: DOCUSATE SODIUM 100 MG CAP PO SCH (08:16)
[2024-08-15] MEDS: PRENATAL VITAMIN 1 TAB PO SCH (08:16)
[2024-08-15] MEDS: SIMETHICONE 80 MG CHEW PO SCH (08:16)
[2024-08-15] MEDS: FERROUS SULFATE 325 MG TAB PO SCH (08:16)
--- NOTE | 2024-08-15 09:25 | Obstetrical Progress Note ---
Date of Service August 15, 2024 Assessment & Plan (1) delivery delivered: Pt doing well c/sec day #1 continue day #1 care Subjective Ambulation: ambulating normally Voiding: no voiding problems Passing Gas:: Yes Diet Tolerance:: clear liquids Lochia:: Small Feeding Type:: breast feeding Review of Systems All systems reviewed & are unremarkable except as noted in HPI & below Physical Exam Constitutional WD/WN, vitals as above well developed and well nourished Eyes PERRL, conjunctivae normal, anicteric sclerae ENMT external ear and nose normal, oropharynx normal Neck trachea midline, no thyromegaly Respiratory normal respiratory effort, lungs clear to auscultation Cardiovascular RRR, no murmur, no edema Chest (Breasts) normal inspection/palpation of breasts Gastrointestinal (Abdomen) normal bowel sounds, soft, nontender, no hepatosplenomegaly Musculoskeletal no cyanosis or clubbing, extremities motor strength 5/5 Skin no rashes, warm and dry + incision (Clean,dry and intact) Neurologic patellar DTR's 2+ bilat, sensation intact Psychiatric A+Ox3, euthymic affect Genitourinary normal external appearance Lymphatic no cervical or axillary lymphadenopathy Results & Data Vital Signs (Past 12 Hours) Vital Signs Temp Pulse Pulse Resp BP BP Pulse Ox 08/15/24 07:14 18 94 08/15/24 07:14 36.7 C 79 18 120/77 94 08/15/24 07:14 08/15/24 04:05 36.7 C 18 119/77 95 08/15/24 01:17 16 95 08/15/24 01:03 08/15/24 00:45 36.6 C 18 119/68 95 08/15/24 00:27 109 H 94 08/15/24 00:26 108 H 94 08/15/24 00:22 105 H 93 08/15/24 00:21 109 H 94 08/15/24 00:17 98 H 93 08/15/24 00:15 105 H 94 08/15/24 00:12 111 H 94 08/15/24 00:10 36.9 C 16 08/15/24 00:09 115 H 94 08/15/24 00:07 106 H 93 08/15/24 00:02 107 H 94 08/14/24 23:57 103 H 94 08/14/24 23:55 104 H 94 08/14/24 23:52 108 H 95 08/14/24 23:49 110 H 94 08/14/24 23:47 105 H 95 08/14/24 23:42 99 H 94 08/14/24 23:40 16 95 08/14/24 23:37 107 H 94 08/14/24 23:32 115 H 95 08/14/24 23:31 119 H 94 08/14/24 23:27 117 H 95 08/14/24 23:26 116 H 94 08/14/24 23:22 117 H 95 08/14/24 23:21 122 H 94 08/14/24 23:17 122 H 94 08/14/24 23:16 119 H 94 08/14/24 23:12 125 H 95 08/14/24 23:11 121 H 94 08/14/24 23:10 18 95 08/14/24 23:07 110 H 95 08/14/24 23:02 116 H 95 08/14/24 23:00 18 95 08/14/24 22:59 121 H 94 08/14/24 22:57 125 H 95 08/14/24 22:52 122 H 95 08/14/24 22:50 36.9 C 16 95 08/14/24 22:47 125 H 95 08/14/24 22:42 137 H 95 08/14/24 22:40 36.9 C 16 95 08/14/24 22:37 138 H 95 08/14/24 22:32 138 H 95 08/14/24 22:30 16 95 08/14/24 22:27 136 H 95 08/14/24 22:22 137 H 95 08/14/24 22:20 16 95 08/14/24 22:17 131 H 95 08/14/24 22:12 129 H 95 08/14/24 22:10 36.9 C 16 99 08/14/24 22:07 128 H 95 08/14/24 22:04 131 H 158/71 H Pulse Ox O2 Del Method O2 Del Method 08/15/24 07:14 08/15/24 07:14 Room Air 08/15/24 07:14 94 Room Air 08/15/24 04:05 Room Air 08/15/24 01:17 08/15/24 01:03 95 Room Air 08/15/24 00:45 Room Air 08/15/24 00:27 08/15/24 00:26 08/15/24 00:22 08/15/24 00:21 08/15/24 00:17 08/15/24 00:15 08/15/24 00:12 08/15/24 00:10 08/15/24 00:09 08/15/24 00:07 08/15/24 00:02 08/14/24 23:57 08/14/24 23:55 08/14/24 23:52 08/14/24 23:49 08/14/24 23:47 08/14/24 23:42 08/14/24 23:40 Room Air 08/14/24 23:37 08/14/24 23:32 08/14/24 23:31 08/14/24 23:27 08/14/24 23:26 08/14/24 23:22 08/14/24 23:21 08/14/24 23:17 08/14/24 23:16 08/14/24 23:12 08/14/24 23:11 08/14/24 23:10 Room Air 08/14/24 23:07 08/14/24 23:02 08/14/24 23:00 Room Air 08/14/24 22:59 08/14/24 22:57 08/14/24 22:52 08/14/24 22:50 Room Air 08/14/24 22:47 08/14/24 22:42 08/14/24 22:40 Room Air 08/14/24 22:37 08/14/24 22:32 08/14/24 22:30 Room Air 08/14/24 22:27 08/14/24 22:22 08/14/24 22:20 Room Air 08/14/24 22:17 08/14/24 22:12 08/14/24 22:10 Room Air 08/14/24 22:07 08/14/24 22:04
[2024-08-15] MEDS ORDERED: HYDROmorphone INJ 0.5 MG/0.5 ML SYR IV PRN (16:28)
[2024-08-15] MEDS ORDERED: diphenhydrAMINE Capsule 25 MG CAP PO PRN (16:28)
[2024-08-15] MEDS ORDERED: ONDANSETRON INJ 2 MG/ML 2 ML VIAL IV PRN (16:28)
[2024-08-15] MEDS ORDERED: diphenhydrAMINE 50 MG/ML VIAL IV PRN (16:28)
[2024-08-15] MEDS ORDERED: PROMETHAZINE 12.5 MG/50.5 ML BAG IV PRN (16:28)
[2024-08-15] MEDS: MoRPHine SULFATE PF 1 MG/ML 10 ML AMP/VIAL EPI ONE (19:26)
[2024-08-15] MEDS: SODIUM CHLORIDE 0.9% 1,000 ML IV SCH (19:27)
[2024-08-15] MEDS: INFLUENZA VACC TS2024-25(6m+)/PF (IIV3) 0.5mL Syr IM ONE (19:36)
[2024-08-15] MEDS: bisacodyL 5 MG TABEC PO SCH (20:31)
[2024-08-16] MEDS ORDERED: bisacodyL 10 MG SUPP PR PRN
[2024-08-16 06:13] LABS: Hematocrit (blood only) 26.6 % (37.0-47.0); Hemoglobin 8.6 g/dl (12.0-16.0)
[2024-08-16 07:16] VITALS: O2SAT 97
--- NOTE | 2024-08-16 08:29 | Obstetrical Progress Note ---
Date of Service August 16, 2024 Assessment & Plan (1) delivery delivered: PPD #2 pt doing well' wishes to be discharged Physical Exam Constitutional WD/WN, vitals as above Eyes PERRL, conjunctivae normal, anicteric sclerae ENMT external ear and nose normal, oropharynx normal Neck trachea midline, no thyromegaly Respiratory normal respiratory effort, lungs clear to auscultation Cardiovascular RRR, no murmur, no edema Chest (Breasts) normal inspection/palpation of breasts Gastrointestinal (Abdomen) normal bowel sounds, soft, nontender, no hepatosplenomegaly Musculoskeletal no cyanosis or clubbing, extremities motor strength 5/5 Skin + incision (Incision clean,dry and intact) Neurologic patellar DTR's 2+ bilat, sensation intact Psychiatric A+Ox3, euthymic affect Genitourinary no vaginal lesions, no adnexal mass Lymphatic no cervical or axillary lymphadenopathy Results & Data Vital Signs (Past 12 Hours) Vital Signs Temp Pulse Resp BP Pulse Ox O2 Del Method 08/16/24 07:14 37 C 78 15 103/67 97 Room Air 08/15/24 23:40 36.6 C 76 16 108/73 96 Room Air
[2024-08-16] MEDS: oxyCODONE HCL IR 5 MG TAB (IMMEDIATE RELEASE) PO PRN (08:39)
--- NOTE | 2024-08-16 08:40 | Discharge Summary ---
Date of Service August 16, 2024 Admission HPI Per Admitting Provider Pt admitted for induction of labor on 08/14/24. Pt underwent section for active phase arrest of labor. Detail of surgery is in the op note Postop care was unremarkable and pt is discharged home instable condition Discharge Data Procedures Performed Operation Date: 08/14/24 20:50 Actual Procedures p Section in LD with the delivery of a live male child at 2120. - Paolo Davis MD
[2024-08-16] MEDS: IRON SUCROSE 200 MG in 0.9 % SODIUM CHLORIDE 100 ML IV ONE (09:36)
[2024-08-16 09:38] VITALS: RESP 16
[2024-08-16 09:58] VITALS: BP 113/73; PULSE 82; TEMP 97.9
[2024-08-17] MEDS ORDERED: ACETAMINOPHEN 325 MG TAB PO PRN (03:03)
[2024-08-17] MEDS ORDERED: IBUPROFEN 600 MG TAB PO PRN (03:03)
== END 2024-08-16 15:39 | disposition home or self-care (01) | DRG 788 ==
LOC: 4S1 07:53 → 4E2 08-15 00:57